=== PATIENT | male | born 1950 | race Caucasian/White ===

== ENCOUNTER 2017-05-17 07:21 | Emergency (ER) | payer BC ==
[2017-05-17 07:47] LABS: #Basophils 0.1 thou/uL (0.0-0.2); #Eosinphils 0.3 thou/uL (0.0-0.7); #Lymphocytes 2.1 thou/uL (1.20-3.40); #Monocytes 0.5 thou/uL (0.11-0.59); #Neutrophils 5.2 thou/uL (1.40-6.50); %Basophils 1.2 % (0.0-1.0); %Eosinophils 4.1 % (0.0-10.0); %Lymphocytes 25.3 % (21.0-51.0); %Monocytes 5.7 % (0.0-10.0); Hematocrit 51.8 % (42.0-52.0); Red Blood Cell (RBC) Count 5.72 mill/uL (4.70-6.10); White Blood Cell (WBC) Count 8.2 thou/uL (4.8-10.8)
[2017-05-17] MEDS ORDERED: Ketorolac Tromethamine 30 MG/ML VIAL ONE (08:00)
[2017-05-17] MEDS ORDERED: Diazepam 5 MG TAB ONE (08:00)
[2017-05-17 08:09] LABS: ALT (SGPT) 18 U/L (8-55); AST (SGOT) 17 U/L (5-34); Alkaline Phosphatase 92 U/L (40-150); Anion Gap 13 mmol/L (10-20); BUN (Urea Nitrogen) 11 mg/dL (8.4-25.7); Bilirubin, Total 1.2 mg/dL (0.2-1.2); CK (CPK) 49 U/L (30-200); Calc. Creatinine Clearance 0 mL/min (70-130); Calcium 8.5 mg/dL (7.8-10.44); Carbon Dioxide 22 mmol/L (23-31); Chloride 108 mmol/L (98-107); Estimated GFR-MDRD Greater than 90; Protein, Total 6.5 g/dL (5.8-8.1)
[2017-05-17 08:19] LABS: Troponin I Less than 0.010 ng/mL (< 0.028)
--- NOTE | 2017-05-17 08:39 | RAD ---
PORTABLE CHEST: Date: 05/17/17 COMPARISON: 12/22/15. HISTORY: Chest pain. FINDINGS: Heart size is enlarged. Once again, a questionable area of nodularity adjacent to the costochondral j unction of the left first rib is seen. I am not certain whether this is related to a pulmonary nodule or is just related to the costochondral junction. There is no infiltrative process noted. No other f indings. IMPRESSION: 1. Cardiomegaly. 2. Questionable left upper lobe pulmonary nodule versus prominent costochondral junction of left fir st rib. Oblique films may be helpful in assessment of this. POS: [facility]
[2017-05-17] MEDS ORDERED: Albuterol Sulfate 2.5 mg/3 ml Neb ONE (08:52)
[2017-05-17] MEDS ORDERED: methylPREDNISolone Sod Succ/PF 125 MG/2 ML VIAL ONE (08:56)
--- NOTE | 2017-06-08 15:30 | EKG ---
Test Reason : Blood Pressure : / mmHG Vent. Rate : 067 BPM Atrial Rate : 067 BPM P-R Int : 158 ms QRS Dur : 094 ms QT Int : 440 ms P-R-T Axes : 023 -07 030 degrees QTc Int : 464 ms Sinus rhythm with occasional Premature ventricular complexes Otherwise normal ECG Confirmed by LIUDMILA MORRISON D.O. ([id number]), news editor JACE GORDON ([id number]) on 06/08/2017 3:30:16 PM Referred By: Confirmed By:LIUDMILA MORRISON D.O.
== END 2017-05-17 10:40 | disposition home or self-care (01) ==
LOC: ERS 07:21
DX: S39.012A Strain of muscle, fascia and tendon of lower back, initial encounter (principal); J45.909 Unspecified asthma, uncomplicated; I11.0 Hypertensive heart disease with heart failure; I50.9 Heart failure, unspecified; F41.9 Anxiety disorder, unspecified; Z79.899 Other long term (current) drug therapy; X58.XXXA Exposure to other specified factors, initial encounter
CPT/HCPCS: 36415; 71010; 80053; 82553; 83880; 84484; 85025; 93005; 94640; 96374; 96375; J1885; J2930; J7611; J7620

== ENCOUNTER 2017-12-04 07:44 | Outpatient (CLI) | payer OTHER, MEDICARE ==
--- NOTE | 2017-12-04 10:47 | CT ---
CT ABDOMEN AND PELVIS WITH CONTRAST: HISTORY: A 67-year-old male with a history of periumbilical pain. COMPARISON: 12/22/2015 FINDINGS: The lungs are clear. Status post cholecystectomy. Postop changes. Evident for gastric bypass with a small hiatal hernia. The pancreas appears within normal limits. No evidence of pancreatic mass, a bnormal fat stranding, or evidence for acute pancreatitis. The spleen and adrenal glands are unremar kable. Small bilateral renal hypodensities (evidence for small cysts). Normal appearing appendix. Extensive colonic diverticulosis involving the sigmoid and left colon without evidence for diverticul itis. No abscess, adenopathy, or abnormal fluid collection. IMPRESSION: 1. Colonic diverticulosis without diverticulitis. 2. Small bilateral renal cysts. 3. Postoperative changes involving the stomach, status post cholecystectomy. 4. Unremarkable appearing pancreas (stable from prior study). POS: [facility]
[2017-12-04] MEDS ORDERED: Iopamidol 370 76% 100 ML VIAL ONE (12:55)
== END 2017-12-04 07:45 | disposition home or self-care (01) ==
LOC: BICCT 07:44 → CT 07:45
PROVIDERS: ATTEND Internal Medicine Gastroenterology
DX: R10.33 Periumbilical pain (principal); K57.30 Diverticulosis of large intestine without perforation or abscess without bleeding; N28.1 Cyst of kidney, acquired; Z98.890 Other specified postprocedural states; Z90.49 Acquired absence of other specified parts of digestive tract
CPT/HCPCS: 74177

== ENCOUNTER 2017-12-05 12:07 | Emergency (ER) | payer MEDICARE, OTHER ==
[2017-12-05 12:50] LABS: #Basophils 0.1 thou/uL (0.0-0.2); #Eosinphils 0.3 thou/uL (0.0-0.7); #Lymphocytes 2.5 thou/uL (1.20-3.40); #Monocytes 0.5 thou/uL (0.11-0.59); #Neutrophils 3.5 thou/uL (1.40-6.50); %Basophils 1.5 % (0.0-1.0); %Eosinophils 4.1 % (0.0-10.0); %Lymphocytes 36.1 % (21.0-51.0); %Monocytes 7.9 % (0.0-10.0); %Neutrophils 50.4 % (42.0-75.0); Hemoglobin 16.2 g/dL (14.0-18.0); Mean Corpuscular HGB CONC 33.4 g/dL (32.0-36.0); Mean Corpuscular Hemoglobin 29.5 pg (27.0-31.0); Mean Corpuscular Volume 88.2 fl (80.0-94.0); Mean Platelet Volume 8.7 fL (7.4-10.4); Platelet Count 199 thou/uL (130-400); RBC Distribution Width 12.6 % (11.5-14.5); Red Blood Cell (RBC) Count 5.49 mill/uL (4.70-6.10); White Blood Cell (WBC) Count 6.9 thou/uL (4.8-10.8)
--- NOTE | 2017-12-05 13:06 | RAD ---
CHEST ONE VIEW: HISTORY: Chest pain. COMPARISON: Chest radiograph from 05/17/2017. FINDINGS: Heart size is within the upper limits of normal. The nodular density projecting in the left lung ape x is similar. No acute osseous abnormality. Heart size is mildly enlarged. IMPRESSION: Similar examination of the chest from 2017. Nodular density projecting over the left upper lobe is s imilar. A follow-up two view chest may be beneficial. POS: [facility]
[2017-12-05 13:13] LABS: ALT (SGPT) 10 U/L (8-55); AST (SGOT) 15 U/L (5-34); Albumin 3.7 g/dL (3.4-4.8); Alkaline Phosphatase 90 U/L (40-150); Anion Gap 14 mmol/L (10-20); BUN (Urea Nitrogen) 11 mg/dL (8.4-25.7); Bilirubin, Total 0.9 mg/dL (0.2-1.2); CK (CPK) 56 U/L (30-200); Calc. Creatinine Clearance 0 mL/min (70-130); Calcium 8.8 mg/dL (7.8-10.44); Carbon Dioxide 23 mmol/L (23-31); Chloride 105 mmol/L (98-107); Estimated GFR-MDRD 88; Glucose 85 mg/dL (80-115); Lipase 10 U/L (8-78); Potassium 4.1 mmol/L (3.5-5.1); Protein, Total 6.7 g/dL (5.8-8.1); Sodium 138 mmol/L (136-145)
[2017-12-05 13:17] LABS: CKMB 1.4 ng/mL (0-6.6); Troponin I Less than 0.010 ng/mL (< 0.028)
== END 2017-12-05 15:17 | disposition home or self-care (01) ==
LOC: ERS 12:07
DX: R07.89 Other chest pain (principal); J45.909 Unspecified asthma, uncomplicated; I11.0 Hypertensive heart disease with heart failure; I50.9 Heart failure, unspecified; F41.9 Anxiety disorder, unspecified
CPT/HCPCS: 36415; 71045; 82550; 82553; 83690; 84484; 85025; 93005

== ENCOUNTER 2018-06-02 09:59 | Outpatient (CLI) | payer OTHER, MEDICARE ==
--- NOTE | 2018-06-02 11:16 | RAD ---
THREE VIEWS LEFT KNEE: Comparison: None. History: Left knee pain. FINDINGS: Three views of the left knee shows no evidence of acute fracture or dislocation. Moderate tricompartm ental osteophytes are seen consistent with osteoarthritis. This is greatest in the mediofemoral tibia l compartment. Calcifications are seen in the menisci likely secondary to CPPD. IMPRESSION: Moderate left knee osteoarthritis without acute osseous abnormality. POS: [facility]
== END 2018-06-02 10:00 | disposition home or self-care (01) ==
LOC: BICRAD 09:59
PROVIDERS: ATTEND Family Medicine
DX: M25.562 Pain in left knee (principal); M17.12 Unilateral primary osteoarthritis, left knee

== ENCOUNTER 2018-06-13 11:48 | Inpatient (IN) | payer OTHER, MEDICARE ==
[2018-06-13] MEDS ORDERED: Nitroglycerin 2% Ointment 1 INCH/1 GM Packet ONE (12:26)
[2018-06-13] MEDS ORDERED: Enoxaparin Sodium 30 MG/0.3 ML SYRINGE ONE (12:27)
[2018-06-13] MEDS ORDERED: Enoxaparin Sodium 100 MG/ML SYRINGE ONE (12:27)
[2018-06-13] MEDS ORDERED: Furosemide 20 MG/2 ML VIAL ONE (12:28)
[2018-06-13 12:30] LABS: #Basophils 0.1 thou/uL (0.0-0.2); #Eosinphils 0.3 thou/uL (0.0-0.7); #Lymphocytes 2.4 thou/uL (1.20-3.40); #Monocytes 0.5 thou/uL (0.11-0.59); #Neutrophils 4.3 thou/uL (1.40-6.50); %Eosinophils 3.5 % (0.0-10.0); %Lymphocytes 31.6 % (21.0-51.0); %Monocytes 6.7 % (0.0-10.0); %Neutrophils 57.3 % (42.0-75.0); Hemoglobin 17.4 g/dL (14.0-18.0); Mean Corpuscular HGB CONC 34.3 g/dL (32.0-36.0); Mean Corpuscular Volume 87.4 fL (78.0-98.0); Mean Platelet Volume 8.6 fL (7.4-10.4); Platelet Count 201 thou/uL (130-400); RBC Distribution Width 12.8 % (11.5-14.5); Red Blood Cell (RBC) Count 5.81 mill/uL (4.70-6.10); White Blood Cell (WBC) Count 7.5 thou/uL (4.8-10.8)
[2018-06-13 12:52] LABS: ALT (SGPT) 12 U/L (8-55); AST (SGOT) 14 U/L (5-34); Albumin 3.8 g/dL (3.4-4.8); Alkaline Phosphatase 110 U/L (40-150); Anion Gap 13 mmol/L (10-20); BUN (Urea Nitrogen) 10 mg/dL (8.4-25.7); Bilirubin, Total 1.1 mg/dL (0.2-1.2); Calc. Creatinine Clearance 0 mL/min (70-130); Calcium 8.9 mg/dL (7.8-10.44); Carbon Dioxide 26 mmol/L (23-31); Chloride 103 mmol/L (98-107); Estimated GFR-MDRD 87; Globulin 3.1 g/dL (2.4-3.5); Glucose 95 mg/dL (80-115); Lipase 7 U/L (8-78); Potassium 3.6 mmol/L (3.5-5.1); Protein, Total 6.9 g/dL (5.8-8.1); Sodium 138 mmol/L (136-145)
[2018-06-13 12:56] LABS: INR-International Normal Ratio 1.1; PTT 30.7 SEC (22.9-36.1); Prothrombin Time 13.8 SEC (12.0-14.7)
--- NOTE | 2018-06-13 12:56 | RAD ---
PORTABLE CHEST ONE VIEW: Date: 06-13-18 Time: 12:41 p.m. History: Chest pain FINDINGS: Comparison made with exam of 12-05-17. Heart size is normal. No focal areas of consolidation or pneumothoraces or pleural effusions are seen . IMPRESSION: No acute process. POS: [facility]
[2018-06-13 15:42] LABS: Troponin I Less than 0.010 ng/mL (< 0.028)
[2018-06-13 16:13] VITALS: BMI 37.8
[2018-06-13] MEDS ORDERED: Nitroglycerin 0.4 MG TAB (25 Tab Bottle) PO PRN (17:36)
[2018-06-13] MEDS ORDERED: Communication Order-Pharmacy FS SCH (18:00)
[2018-06-13] MEDS: Acetaminophen 500 MG TAB PO PRN (18:26)
--- NOTE | 2018-06-13 19:13 | PRG ---
DATE OF SERVICE: 06/13/2018 CARDIOLOGY FOLLOWUP SUBJECTIVE: Mr. Ly is feeling much better, free of any chest pressure now. He says, however, he gets up to walk around even around the room. He gets pressure in his chest. Cardiac enzymes were negative. ASSESSMENT: Unstable angina. PLAN: Cardiac catheterization on Saturday. He is on aspirin and enoxaparin until then. Discussed risks of stroke, heart attack, iodine allergy, loss of blood supply to leg or kidney, stent thrombosis, and stent restenoses. He understands and wishes to proceed. This is an addition to the note from the office. Job ID: [id number]
[2018-06-13 20:04] LABS: Troponin I Less than 0.010 ng/mL (< 0.028)
[2018-06-13] MEDS: Atorvastatin Calcium 40 MG TAB PO SCH (20:21)
[2018-06-13] MEDS: Carvedilol 6.25 MG TAB PO SCH (20:21)
[2018-06-13] MEDS: Enoxaparin Sodium 120 MG/0.8 ML SYRINGE SC SCH (20:21)
[2018-06-13] MEDS: HYDROcodone/Acetaminophen 7.5/325 mg Tablet PO PRN (20:22)
[2018-06-13] MEDS: Lisinopril 5 MG TAB PO SCH (20:22)
--- NOTE | 2018-06-14 00:56 | HP ---
HISTORY OF PRESENT ILLNESS: This is a 67-year-old white male with coronary artery disease and hypertension, who presents with chest pain. The patient had a cardiac cath done in 2012, which revealed 20% to 30% lesions. No stents were placed at that time. He has been followed by Dr. Long. He also had a stress test and an echo done in August of this year, which were found to be unremarkable. He was doing well until approximately 3 days ago he began developing chest tightness with exertion. He also noted his blood pressure to be elevated with diastolics in the 120 to 130 range. He did not complain of any nausea, vomiting, or sweats. He presented to Dr. Long's office and Dr. Long directed him to the emergency room. In the ER, he attempted to leave AMA, but needed a work excuse, so he had to stay in the hospital. He is still having occasional bouts of chest pain. He complains now mostly of a headache from the nitroglycerin. He also has a long history of chronic diarrhea dating after his bariatric surgery in 2003. He is followed by Dr. Edouard and he takes Imodium liquid every morning and Lomotil every morning. He consumes these in relatively large doses. PAST MEDICAL HISTORY: Hypertension, arthritis, asthma, depression, GERD, sleep apnea, and hyperlipidemia. PAST SURGICAL HISTORY: Includes knee surgery, right in 1977; gastric bypass in 2003, cholecystectomy in 2004, foot surgery, sleep apnea diagnosed in 1981, cardiac cath in 2014 with coronary artery disease, 20% to 30% lesions. FAMILY HISTORY: Father with lung disease, arthritis, asthma, lung cancer, and prostate cancer. Mother with heart disease, diabetes, and arthritis. Siblings with HIV infections. Children with alcoholism and drug addiction. Paternal grandfather with heart disease, hypertension, colon cancer, and skin cancer. Paternal grandmother with hypertension. Maternal grandfather with heart disease. Maternal grandmother with lung disease and diabetes. SOCIAL HISTORY: He is . He has five kids, all grown. 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 He does not smoke. He does not drink. MEDICATIONS: 1. Coreg 6.25 p.o. b.i.d. 2. Protonix 40 daily. 3. Lasix daily. 4. Imodium liquid half a bottle q.a.m. and Lomotil 4 tablets q.a.m., followed by Dr. Edouard. ALLERGIES: TO NORVAS. REVIEW OF SYSTEMS: As above. PHYSICAL EXAMINATION: VITAL SIGNS: Temperature 98.0, pulse 74, respirations 18, pulse ox 96%, and blood pressure 123/78. GENERAL: No acute distress at this time. HEENT: Clear. HEART: Regular rate and rhythm. LUNGS: Clear. ABDOMEN: Soft, nontender. EXTREMITIES: With trace edema. LABORATORY DATA: White count 7.5, hemoglobin and hematocrit 17 and 50. INR 1.1. Sodium 138, potassium 3.6, chloride 103, creatinine 0.88, and BUN 10. Troponin less than 0.010 x2. BNP 104. Chest x-ray negative. ASSESSMENT: 1. Chest pain/chest tightness, rule out myocardial infarction. 2. Coronary artery disease with a history of 20% to 30% lesions in 2015. 3. Chronic diarrhea since 1999. 4. Bariatric surgery. 5. Headache from nitroglycerin. 6. Hypertension. 7. Asthma. 8. Hyperlipidemia. PLAN: 1. Consult Dr. Long. 2. Echo. 3. Resume home medications. 4. [place] for headache and Tylenol p.r.n. 5. Possible cardiac cath per Cardiology. 6. Lovenox mg/kg q.12. Job ID: [id number]
[2018-06-14 06:38] LABS: Cardiac Risk 4.5 (Less than 4.5)
[2018-06-14] MEDS ORDERED: Furosemide 20 MG/2 ML VIAL SLOW IVP SCH (08:00)
[2018-06-14] MEDS: Carvedilol 6.25 MG TAB PO SCH (08:14)
[2018-06-14] MEDS: Potassium Chloride 20 MEQ TAB PO SCH (08:14)
[2018-06-14] MEDS: Enoxaparin Sodium 120 MG/0.8 ML SYRINGE SC SCH ×2 (08:15→20:50)
[2018-06-14] MEDS: Lisinopril 5 MG TAB PO SCH (08:15)
[2018-06-14] MEDS ORDERED: Carvedilol 6.25 MG TAB PO SCH ×4 (09:00→21:00)
[2018-06-14] MEDS: Loperamide HCl 2 MG CAP PO PRN (09:33)
[2018-06-14] MEDS: Diphenoxylate HCl/Atropine Tablet PO PRN (11:17)
--- NOTE | 2018-06-14 11:30 | PRG ---
DATE OF SERVICE: 06/14/2018 SUBJECTIVE: The patient is doing well. No complaints of any chest pain or shortness of breath. Awaiting cardiac cath on Saturday. He is undergoing an echo right at this time. OBJECTIVE: VITAL SIGNS: Temperature 97.8, pulse 65, and blood pressure 186/107. HEART: Regular rate and rhythm. LUNGS: Clear. ABDOMEN: Soft. EXTREMITIES: No edema. LABORATORY DATA: Troponin less than 0.010 x3. Cholesterol 134. Chloride 83. ASSESSMENT: 1. Unstable angina. 2. Coronary artery disease with history of 20% to 30% lesions in 2004. 3. Chronic diarrhea. 4. Status post bariatric surgery. 5. Headache. 6. Hypertension. 7. Hyperlipidemia. 8. Asthma. PLAN: 1. Cardiac catheterization on Saturday. 2. We will increase blood pressure medications. 3. Continue Lovenox. Job ID: [id number]
[2018-06-14] MEDS ORDERED: hydrALAZINE 25 MG TAB PO SCH ×3 (12:15→15:00)
[2018-06-14] MEDS ORDERED: Lisinopril 5 MG TAB PO SCH (13:33)
[2018-06-14] MEDS ORDERED: Lisinopril 10 MG TAB PO SCH (13:45)
[2018-06-14] MEDS ORDERED: Carvedilol 25 MG TAB PO SCH (13:45)
[2018-06-14] MEDS ORDERED: Aspirin 81 mg Enteric Coated Tablet PO SCH ×2 (13:45→14:00)
[2018-06-14] MEDS ORDERED: hydrALAZINE 20 MG/ML VIAL SLOW IVP PRN (13:52)
--- NOTE | 2018-06-14 13:52 | EKG ---
Test Reason : CHEST TIGHTNESS Blood Pressure : / mmHG Vent. Rate : 062 BPM Atrial Rate : 062 BPM P-R Int : 160 ms QRS Dur : 090 ms QT Int : 432 ms P-R-T Axes : 026 -12 -09 degrees QTc Int : 438 ms Sinus rhythm with frequent Premature ventricular complexes Nonspecific ST abnormality Abnormal ECG Confirmed by MARII HANSEN, TJ ([id number]), newspaper editor managing DEBBIE WU ([id number]) on 06/14/2018 1:52:03 PM Referred By: Confirmed By:TJ COLVIN MD
[2018-06-14] MEDS: Carvedilol 25 MG TAB PO SCH (20:49)
[2018-06-14] MEDS: hydrALAZINE 25 MG TAB PO SCH (20:49)
[2018-06-14] MEDS: Atorvastatin Calcium 40 MG TAB PO SCH (20:49)
[2018-06-14] MEDS: Lisinopril 10 MG TAB PO SCH (20:50)
[2018-06-15] MEDS: HYDROcodone/Acetaminophen 7.5/325 mg Tablet PO PRN (08:02)
[2018-06-15] MEDS: Potassium Chloride 20 MEQ TAB PO SCH (08:03)
[2018-06-15] MEDS: Lisinopril 10 MG TAB PO SCH ×2 (08:03→20:26)
[2018-06-15] MEDS: hydrALAZINE 25 MG TAB PO SCH ×3 (08:03→20:26)
[2018-06-15] MEDS: Carvedilol 25 MG TAB PO SCH ×2 (08:03→20:26)
[2018-06-15] MEDS: Aspirin 81 mg Enteric Coated Tablet PO SCH (08:03)
[2018-06-15] MEDS: Enoxaparin Sodium 120 MG/0.8 ML SYRINGE SC SCH ×2 (08:04→20:27)
--- NOTE | 2018-06-15 09:06 | CON ---
DATE OF CONSULTATION: 06/15/2018 SUBJECTIVE: The patient is feeling much better today. No complaints of chest pain or shortness of breath. OBJECTIVE: VITAL SIGNS: Blood pressure 132/78, temp 97.8, pulse 57, respirations 16, pulse ox 96%. HEART: Regular rate and rhythm. LUNGS: Clear. ABDOMEN: Soft. EXTREMITIES: No edema. LABORATORY DATA: None. ASSESSMENT: 1. Unstable angina. 2. Coronary artery disease with history of 23% to 30% lesion in 2004. 3. Chronic diarrhea. 4. Status post bariatric surgery. 5. Headache. 6. Hypertension, much improved with adjustment of medicines. 7. Hyperlipidemia. 8. Asthma. PLAN: 1. Cardiac catheterization in a.m. 2. Continue to follow blood pressure levels. 3. Continue Lovenox. Job ID: [id number]
[2018-06-15] MEDS: Loperamide HCl 2 MG CAP PO PRN (20:26)
[2018-06-15] MEDS: Atorvastatin Calcium 40 MG TAB PO SCH (20:26)
[2018-06-16] MEDS: Aspirin 81 mg Enteric Coated Tablet PO SCH (05:15)
[2018-06-16] MEDS: Potassium Chloride 20 MEQ TAB PO SCH (05:15)
[2018-06-16] MEDS: hydrALAZINE 25 MG TAB PO SCH ×2 (05:16→21:02)
[2018-06-16] MEDS: Carvedilol 25 MG TAB PO SCH ×2 (05:16→21:03)
[2018-06-16] MEDS: Loperamide HCl 2 MG CAP PO PRN ×2 (05:16→08:11)
[2018-06-16] MEDS: Lisinopril 10 MG TAB PO SCH ×2 (05:17→21:02)
[2018-06-16] MEDS: Diphenoxylate HCl/Atropine Tablet PO PRN (06:30)
[2018-06-16] MEDS ORDERED: Diazepam 5 MG TAB PO SCH (08:00)
[2018-06-16] MEDS ORDERED: Nitroglycerin 100MG/250ML BOT 250 ML ONE ×2 (08:21→09:41)
[2018-06-16] MEDS ORDERED: Heparin 10,000 UNITS/1 ML VIAL ONE (08:21)
[2018-06-16] MEDS ORDERED: Fentanyl 100 MCG/2 ML VIAL ONE (09:22)
[2018-06-16] MEDS ORDERED: Midazolam HCl 2 mg/2 ml Vial ONE (09:22)
[2018-06-16] MEDS ORDERED: Lidocaine 1% (PF) 30 ML VIAL ONE (09:23)
[2018-06-16] MEDS ORDERED: Nitroglycerin 0.4 MG TAB (25 Tab Bottle) SL PRN (10:26)
[2018-06-16] MEDS ORDERED: traMADol HCl 50 MG TAB PO PRN (10:26)
[2018-06-16] MEDS ORDERED: Acetaminophen/Codeine 30-300mg Tablet PO PRN ×2 (10:26)
[2018-06-16] MEDS ORDERED: Sodium Chloride 0.9% 200 ML IV PRN (10:30)
[2018-06-16] MEDS ORDERED: Mag-Al 1200 mg/1200 mg/30 ML UDCUP PO SCH (12:45)
[2018-06-16] MEDS ORDERED: Iopamidol 370 76% 100 ML VIAL ONE (12:49)
[2018-06-16] MEDS ORDERED: Iopamidol 370 76% 50 ML VIAL FS ONE (12:49)
--- NOTE | 2018-06-16 14:51 | PRG ---
DATE OF SERVICE: 06/16/2018 SUBJECTIVE: Mr. Ly has undergone catheterization. It appears he will need bypass surgery. He has no other medical complaints today. OBJECTIVE: VITAL SIGNS: Blood pressure 132/82. LUNGS: Clear. HEART: Reveals a regular rate and rhythm. No murmurs, gallops, or rubs. ABDOMEN: Soft and nontender. Bowel sounds present and active. No hepatosplenomegaly is noted. IMPRESSION: Atherosclerotic coronary artery disease. PLAN: Further recommendations per Cardiology as well as Cardiovascular Surgery. Job ID: [id number]
[2018-06-16] MEDS ORDERED: Communication Order-Pharmacy FS SCH (17:30)
--- NOTE | 2018-06-16 18:15 | PRG ---
DATE OF SERVICE: 06/16/2018 CARDIOLOGY FOLLOWUP SUBJECTIVE: I had a long discussion with Mr. Ly about his status. He does have single vessel coronary artery disease with a chest pressure with minimal exertion. The patient does have approximately 70% lesion in the proximal LAD, it is "hazy." Also, there is a lesion in the diagonal branch. Dr. Lei saw the patient, thought that vessel is not likely to be bypassable. After further discussion, I think stenting would be an appropriate treatment. I have explained to him it could be side-branch occlusion of the diagonal branch or the septal perforating artery; however, in view of his chest pressure with low-level activity and occasionally at rest, I think intervention is indicated. Told to me he still may have chest pressure due to diagonal branch, even after the successful stent implantation, but Dr. Lei did not think a surgery was indicated. I discussed other risks. He understands risk of stroke, heart attack, iodine allergy, loss of blood supply to leg or kidney. We will proceed tomorrow as planned. Job ID: [id number]
--- NOTE | 2018-06-16 18:31 | CON ---
DATE OF CONSULTATION: HISTORY OF PRESENT ILLNESS: This is a 67-year-old gentleman with a history of previous cardiac catheterization showing mild coronary artery disease about 5 years ago. Recent stress test earlier this year was unremarkable. He began experiencing some pressure in his lower chest, which was rather constant, unrelated to activity. He was seen by Dr. Long in his office, where the symptoms resolved after taking 4 nitroglycerins and applying some nitro paste. Cardiac enzymes in the hospital have been negative. An EKG is nonspecific with some unifocal PVCs. PAST MEDICAL HISTORY: Includes hypertension that is mild. He has a history of arthritis related to weight primarily, history of depression, morbid obesity, and dyslipidemia. PAST SURGICAL HISTORY: Includes knee surgery in 1977; gastric bypass in 2003; resulting in a weight loss from over 400 pounds to about 230 and now stabilized at about 270, however, he has some daily diarrhea related to this. He had cholecystectomy in 2004, foot surgery. SOCIAL HISTORY: He runs a [employer] about 12 hours a day. MEDICATIONS PRIOR TO ADMISSION: 1. Coreg 6.25 b.i.d. 2. Protonix 40 a day. 3. Lasix. REVIEW OF SYSTEMS: The patient has the above-noted GI symptoms. He denies any significant nocturia or hesitancy. He does complain of arthritis in his knees and swelling in his legs during the day. PHYSICAL EXAMINATION: GENERAL: Alert, cooperative gentleman. Stated weight of 270 pounds, appears to be over 6 feet tall. NECK: No carotid bruits. LUNGS: Clear to auscultation. CARDIAC: Regular rate and rhythm. No murmurs. ABDOMEN: Obese, nontender, and unable to feel abdominal aneurysm. EXTREMITIES: He has no edema presently with palpable pedal pulses in both feet. IMPRESSION: At this time, I would tend toward conservative therapy either medical or perhaps stenting of his LAD. He has 60% to 70% LAD lesion with a smallish diagonal above and below, this both with significant disease, but marginal for grafting. His right coronary artery probably has about a 50% distal stenosis diffusely, probably related to calcification. Job ID: [id number]
[2018-06-16] MEDS ORDERED: TICAGRELOR 90 MG TABLET PO SCH (18:45)
[2018-06-16] MEDS: Atorvastatin Calcium 40 MG TAB PO SCH (21:02)
[2018-06-17] MEDS: Diphenoxylate HCl/Atropine Tablet PO PRN (04:47)
[2018-06-17] MEDS ORDERED: Diazepam 5 MG TAB PO SCH (06:00)
[2018-06-17] MEDS: Sodium Chloride 0.9% 1,000 ML IV SCH ×2 (06:06→16:20)
[2018-06-17] MEDS: Potassium Chloride 20 MEQ TAB PO SCH (06:07)
[2018-06-17] MEDS: Aspirin 81 mg Enteric Coated Tablet PO SCH (06:07)
[2018-06-17] MEDS: TICAGRELOR 90 MG TABLET PO SCH ×3 (06:07→20:07)
[2018-06-17] MEDS: Carvedilol 25 MG TAB PO SCH (06:07)
[2018-06-17] MEDS: hydrALAZINE 25 MG TAB PO SCH ×3 (06:08→20:07)
[2018-06-17] MEDS: Lisinopril 10 MG TAB PO SCH ×2 (06:08→20:07)
[2018-06-17] MEDS: Loperamide HCl 2 MG CAP PO PRN (06:08)
[2018-06-17] MEDS ORDERED: Iopamidol 370 76% 100 ML VIAL ONE ×2 (09:00→10:00)
[2018-06-17] MEDS ORDERED: Iopamidol 370 76% 50 ML VIAL FS ONE (09:00)
[2018-06-17] MEDS ORDERED: Heparin 10,000 UNITS/1 ML VIAL ONE ×3 (09:13→11:34)
[2018-06-17] MEDS ORDERED: Fentanyl 100 MCG/2 ML VIAL ONE ×3 (09:13→13:20)
[2018-06-17] MEDS ORDERED: Midazolam HCl 2 mg/2 ml Vial ONE (09:13)
[2018-06-17] MEDS ORDERED: Nitroglycerin 100MG/250ML BOT 250 ML ONE (09:26)
[2018-06-17] MEDS ORDERED: Nitroglycerin 2% Ointment 1 INCH/1 GM Packet ONE (11:04)
[2018-06-17] MEDS ORDERED: Fentanyl 100 MCG/2 ML VIAL SLOW IVP PRN (11:47)
[2018-06-17] MEDS ORDERED: Nitroglycerin 2% Ointment 1 INCH/1 GM Packet TOP SCH (12:00)
--- NOTE | 2018-06-17 14:10 | PRG ---
DATE OF SERVICE: 06/17/2018 SUBJECTIVE: Mr. Ly is undergoing cardiac cath today. He will have a stent placed. He reports no chest pain. No shortness of breath. OBJECTIVE: LUNGS: Clear. HEART: Reveals no murmur. IMPRESSION: Atherosclerotic coronary artery disease. PLAN: Cardiac stent today per Cardiology. Job ID: [id number]
[2018-06-17] MEDS: Acetaminophen 500 MG TAB PO PRN (15:58)
--- NOTE | 2018-06-17 17:55 | EKG ---
Test Reason : POST STENT Blood Pressure : / mmHG Vent. Rate : 049 BPM Atrial Rate : 049 BPM P-R Int : 182 ms QRS Dur : 102 ms QT Int : 502 ms P-R-T Axes : 021 001 002 degrees QTc Int : 453 ms Marked sinus bradycardia Abnormal ECG When compared with ECG of 13-JUN-2018 11:55, Premature ventricular complexes are no longer Present Confirmed by ROGERIO VOGT ([id number]) on 06/17/2018 5:55:17 PM Referred By: FAUZIA Confirmed By:ROGERIO VOGT
[2018-06-17] MEDS: Atorvastatin Calcium 40 MG TAB PO SCH (20:07)
[2018-06-18 05:44] LABS: #Basophils 0.1 thou/uL (0.0-0.2); #Eosinphils 0.3 thou/uL (0.0-0.7); #Lymphocytes 1.2 thou/uL (1.20-3.40); #Monocytes 0.5 thou/uL (0.11-0.59); #Neutrophils 5.3 thou/uL (1.40-6.50); %Basophils 0.7 % (0.0-1.0); %Eosinophils 4.3 % (0.0-10.0); %Lymphocytes 16.3 % (21.0-51.0); %Monocytes 6.5 % (0.0-10.0); %Neutrophils 72.2 % (42.0-75.0); Hemoglobin 15.5 g/dL (14.0-18.0); Mean Corpuscular HGB CONC 32.7 g/dL (32.0-36.0); Mean Corpuscular Hemoglobin 29.2 pg (27.0-31.0); Mean Corpuscular Volume 89.3 fL (78.0-98.0); Mean Platelet Volume 9.2 fL (7.4-10.4); Platelet Count 173 thou/uL (130-400); Red Blood Cell (RBC) Count 5.32 mill/uL (4.70-6.10); White Blood Cell (WBC) Count 7.3 thou/uL (4.8-10.8)
[2018-06-18 05:57] LABS: ALT (SGPT) 39 U/L (8-55); AST (SGOT) 47 U/L (5-34); Albumin 3.4 g/dL (3.4-4.8); Alkaline Phosphatase 92 U/L (40-150); Anion Gap 8 mmol/L (10-20); BUN (Urea Nitrogen) 12 mg/dL (8.4-25.7); Bilirubin, Total 1.5 mg/dL (0.2-1.2); Calc. Creatinine Clearance 151 mL/min (70-130); Calcium 8.7 mg/dL (7.8-10.44); Carbon Dioxide 27 mmol/L (23-31); Chloride 108 mmol/L (98-107); Estimated GFR-MDRD Greater than 90; Globulin 2.8 g/dL (2.4-3.5); Glucose 92 mg/dL (80-115); Potassium 3.8 mmol/L (3.5-5.1); Protein, Total 6.2 g/dL (5.8-8.1); Sodium 139 mmol/L (136-145)
[2018-06-18] MEDS: Potassium Chloride 20 MEQ TAB PO SCH (08:02)
[2018-06-18] MEDS: Lisinopril 10 MG TAB PO SCH (08:03)
[2018-06-18] MEDS: Aspirin 81 mg Enteric Coated Tablet PO SCH (08:03)
[2018-06-18] MEDS: hydrALAZINE 25 MG TAB PO SCH (08:03)
[2018-06-18] MEDS: TICAGRELOR 90 MG TABLET PO SCH (08:03)
[2018-06-18 11:40] VITALS: BP 168/98; TEMP 97.9
[2018-06-18] MEDS ORDERED: Carvedilol 6.25 MG TAB PO SCH ×2 (12:00→17:00)
--- NOTE | 2018-06-18 12:27 | PRG ---
DATE OF SERVICE: 06/18/2018 SUBJECTIVE: Mr. Ly is doing well. OBJECTIVE: VITAL SIGNS: His blood pressure is very high this morning, but when we rechecked, it is 160/90, which is close to what he normally runs. GENERAL: He has no chest pain or pressure. LUNGS: Clear. CARDIAC: Normal S1. Normal S2. ABDOMEN: Soft, nontender. EXTREMITIES: Reveal mild edema. ASSESSMENT: 1. Coronary artery disease. 2. Status post stent implantation in proximal left anterior descending artery. 3. He has a diagonal branch not amenable to stenting, "it was jailed," could be the cause of angina, discussed with the patient. 4. Hypertension. PLAN: 1. He will go home on carvedilol 12.5 mg twice a day. He was bradycardic on 25 mg twice a day. 2. Aspirin 81 mg a day. 3. Brilinta 90 mg twice a day. 4. Lisinopril 10 mg twice a day. 5. Furosemide 20 mg a day. 6. Atorvastatin. 7. He will come to see us in the office on next , the , and bring home medicines, and he was also given nitroglycerin, he could have angina from the diagonal branch. Job ID: [id number]
--- NOTE | 2018-06-18 13:19 | PRG ---
DATE OF SERVICE: 06/18/2018 SUBJECTIVE: Mr. Ly underwent stenting yesterday without difficulties or problems. Dr. Long reports he is feeling well. OBJECTIVE: VITAL SIGNS: Temperature 97.6, BP 150/98. LUNGS: Clear. HEART: Reveals no murmur. LABORATORY DATA: White blood count 7.3, hemoglobin 15.5, hematocrit 47.5. Electrolytes within normal limits. IMPRESSION: Atherosclerotic coronary artery disease, status post stenting. PLAN: He will be discharged home today. Further followup per Dr. Long. Job ID: [id number]
--- NOTE | 2018-06-18 17:57 | EKG ---
Test Reason : Blood Pressure : / mmHG Vent. Rate : 055 BPM Atrial Rate : 055 BPM P-R Int : 182 ms QRS Dur : 110 ms QT Int : 474 ms P-R-T Axes : 024 -10 021 degrees QTc Int : 453 ms Sinus bradycardia with Premature atrial complexes with Abberant conduction Otherwise normal ECG When compared with ECG of 17-JUN-2018 11:16, Abberant conduction is now Present Confirmed by ROGERIO VOGT ([id number]) on 06/18/2018 5:57:15 PM Referred By: FAUZIA Confirmed By:ROGERIO VOGT
[2018-06-19] MEDS ORDERED: Lisinopril 20 MG TAB PO SCH (09:00)
== END 2018-06-18 13:12 | disposition home or self-care (01) | DRG 247 ==
LOC: ERS 11:48 → 2SW 13:38 → OBSVTOIN 06-15 12:13 → 2NO 06-15 13:52
PROVIDERS: ADMIT Family Medicine; ATTEND Family Medicine
PROC: 4A023N7 Measurement of Cardiac Sampling and Pressure, Left Heart, Percutaneous Approach (ICD-10-PCS; 2018-06-16)
PROC: B2111ZZ Fluoroscopy of Multiple Coronary Arteries using Low Osmolar Contrast (ICD-10-PCS; 2018-06-16)
PROC: 027034Z Dilation of Coronary Artery, One Artery with Drug-eluting Intraluminal Device, Percutaneous Approach (ICD-10-PCS; principal; 2018-06-17)
DX: I25.110 Atherosclerotic heart disease of native coronary artery with unstable angina pectoris (principal); I10 Essential (primary) hypertension; K52.9 Noninfective gastroenteritis and colitis, unspecified; M19.90 Unspecified osteoarthritis, unspecified site; G47.33 Obstructive sleep apnea (adult) (pediatric); J45.909 Unspecified asthma, uncomplicated; E78.5 Hyperlipidemia, unspecified; F32.9 Major depressive disorder, single episode, unspecified; E66.9 Obesity, unspecified; Z98.84 Bariatric surgery status; Z88.8 Allergy status to other drugs, medicaments and biological substances; Z68.37 Body mass index [BMI] 37.0-37.9, adult
CPT/HCPCS: 36415; 71045; 76942; 80053; 80061; 83690; 83880; 84484; 85025; 85347; 85610; 85730; 92928; 93005; 93010; 93306; 93454; 93458; 93798; 94760; 96372; 96374; 99152; 99153; C1769; C1874; C1887; C9600; J1644; J1650; J1940; J2001; J2250; J3010

== ENCOUNTER 2018-07-26 10:04 | Emergency (ER) | payer OTHER, MEDICARE ==
[2018-07-26 10:30] LABS: Bilirubin Negative (Negative); Blood, Urine Negative (Negative); Clarity CLEAR (Clear); Glucose, Urine (Dipstick) Negative (Negative); Leukocyte Negative (Negative); Nitrite Negative (Negative); Protein, Urine (Dipstick) Negative (Neg-Trace); Specific Gravity, Urine 1.012 (1.002-1.036)
[2018-07-26 11:55] LABS: #Basophils 0.1 thou/uL (0.0-0.2); #Eosinphils 0.2 thou/uL (0.0-0.7); #Lymphocytes 1.5 thou/uL (1.20-3.40); #Monocytes 0.4 thou/uL (0.11-0.59); #Neutrophils 4.1 thou/uL (1.40-6.50); %Basophils 0.9 % (0.0-1.0); %Eosinophils 3.4 % (0.0-10.0); %Lymphocytes 24.3 % (21.0-51.0); %Monocytes 6.6 % (0.0-10.0); %Neutrophils 64.8 % (42.0-75.0); Hemoglobin 16.4 g/dL (14.0-18.0); Mean Corpuscular HGB CONC 33.4 g/dL (32.0-36.0); Mean Corpuscular Volume 89.8 fL (78.0-98.0); Mean Platelet Volume 8.1 fL (7.4-10.4); Platelet Count 197 thou/uL (130-400); Red Blood Cell (RBC) Count 5.48 mill/uL (4.70-6.10); White Blood Cell (WBC) Count 6.3 thou/uL (4.8-10.8)
[2018-07-26 12:15] LABS: ALT (SGPT) 14 U/L (8-55); AST (SGOT) 12 U/L (5-34); Albumin 3.7 g/dL (3.4-4.8); Alkaline Phosphatase 108 U/L (40-150); Anion Gap 14 mmol/L (10-20); BUN (Urea Nitrogen) 14 mg/dL (8.4-25.7); CK (CPK) 37 U/L (30-200); Calc. Creatinine Clearance 0 mL/min (70-130); Calcium 8.8 mg/dL (7.8-10.44); Carbon Dioxide 23 mmol/L (23-31); Chloride 103 mmol/L (98-107); Estimated GFR-MDRD Greater than 90; Globulin 2.7 g/dL (2.4-3.5); Glucose 94 mg/dL (80-115); Potassium 3.7 mmol/L (3.5-5.1); Protein, Total 6.4 g/dL (5.8-8.1); Sodium 136 mmol/L (136-145)
[2018-07-26] MEDS ORDERED: Ketorolac Tromethamine 30 MG/ML VIAL ONE (12:25)
--- NOTE | 2018-07-26 14:21 | CT ---
CT ABDOMEN NONCONTRAST CT PELVIS NONCONTRAST: (urolithiasis protocol) DATE: 07/26/2018. TIME: 10:49 a.m. HISTORY: A 67-year-old male with right flank pain. COMPARISON: CT with contrast of 12/04/2017. TECHNIQUE: IV injection of iodinated contrast media: none. Oral contrast media: none. FINDINGS: Other than for urolithiasis, the lack of IV and oral contrast limits the evaluation. Small volume stomach with suture line around it and in adjacent mildly dilated laterally located prox imal small bowel loop in the left upper quadrant. The rest of the small bowel loops are nondilated. A large number of diverticula throughout the descending colon and sigmoid colon. Mild pericolonic f at stranding on the mesenteric, superior side of the sigmoid colon. Uncertain whether or not this re presents diverticulitis. This appears slightly more prominent than on the previous CT and is appreci ated best on the coronal reconstructions. No renal, ureteral, or bladder calculus. No hydroureteron ephrosis. Bladder wall thickness is normal. Normal appendix. Liver margins are questionably nodula r. No other definite pathology identified involving the liver, abdominal aorta, bilateral kidneys, a drenals, pancreas, or spleen. No ascites or pneumoperitoneum. IMPRESSION: 1. No urolithiasis or obstructive uropathy. 2. Extensive descending and sigmoid colonic diverticulosis. 3. Questionable mild sigmoid colonic diverticulitis. Doubtful. Clinical correlation recommended. 4. Status post bariatric gastric bypass surgery and status post cholecystectomy. RASHARD Pacheco POS: [facility]
== END 2018-07-26 12:45 | disposition home or self-care (01) ==
LOC: ERS 10:04
DX: K57.32 Diverticulitis of large intestine without perforation or abscess without bleeding (principal); J45.909 Unspecified asthma, uncomplicated; I11.0 Hypertensive heart disease with heart failure; I50.9 Heart failure, unspecified; F41.9 Anxiety disorder, unspecified
CPT/HCPCS: 36415; 74176; 80053; 81003; 82550; 84484; 85025; 96372; J1885

== ENCOUNTER 2018-11-13 06:35 | Observation (INO) | payer OTHER, MEDICARE ==
[2018-11-12 17:10] VITALS: BMI 39.0
[2018-11-13] MEDS ORDERED: Nitroglycerin 0.4 MG TAB (25 Tab Bottle) ONE (07:22)
[2018-11-13 07:32] LABS: #Basophils 0.1 thou/uL (0.0-0.2); #Eosinphils 0.2 thou/uL (0.0-0.7); #Lymphocytes 1.5 thou/uL (1.20-3.40); #Monocytes 0.5 thou/uL (0.11-0.59); #Neutrophils 3.5 thou/uL (1.40-6.50); %Basophils 1.1 % (0.0-1.0); %Eosinophils 3.1 % (0.0-10.0); %Lymphocytes 26.3 % (21.0-51.0); %Monocytes 7.9 % (0.0-10.0); %Neutrophils 61.7 % (42.0-75.0); Hemoglobin 16.1 g/dL (14.0-18.0); Mean Corpuscular HGB CONC 34.2 g/dL (32.0-36.0); Mean Corpuscular Hemoglobin 30.9 pg (27.0-31.0); Mean Corpuscular Volume 90.3 fL (78.0-98.0); Mean Platelet Volume 8.8 fL (7.4-10.4); Platelet Count 173 thou/uL (130-400); RBC Distribution Width 12.2 % (11.5-14.5); Red Blood Cell (RBC) Count 5.21 mill/uL (4.70-6.10); White Blood Cell (WBC) Count 5.6 thou/uL (4.8-10.8)
[2018-11-13] MEDS ORDERED: Heparin 10,000 UNITS/1 ML VIAL ONE (07:35)
[2018-11-13] MEDS ORDERED: Nitroglycerin 100MG/250ML BOT 0 ML ONE (07:36)
[2018-11-13 07:39] LABS: INR-International Normal Ratio 1.1; PTT 28.7 SEC (22.9-36.1); Prothrombin Time 13.8 SEC (12.0-14.7)
[2018-11-13 07:51] LABS: Anion Gap 12 mmol/L (10-20); BUN (Urea Nitrogen) 16 mg/dL (8.4-25.7); Calc. Creatinine Clearance 141 mL/min (70-130); Calcium 8.8 mg/dL (7.8-10.44); Carbon Dioxide 23 mmol/L (23-31); Chloride 108 mmol/L (98-107); Estimated GFR-MDRD 81; Glucose 86 mg/dL (80-115); Potassium 4.2 mmol/L (3.5-5.1); Sodium 139 mmol/L (136-145)
[2018-11-13] MEDS ORDERED: Midazolam HCl 2 mg/2 ml Vial ONE (08:11)
[2018-11-13] MEDS ORDERED: Fentanyl 100 MCG/2 ML VIAL ONE ×3 (08:11→09:39)
[2018-11-13] MEDS ORDERED: Sodium Chloride 0.9% 1,000 ML IV SCH (09:30)
[2018-11-13] MEDS ORDERED: Iopamidol 370 76% 100 ML VIAL ONE (09:52)
[2018-11-13] MEDS ORDERED: Acetaminophen/Codeine 30-300mg Tablet ONE (12:36)
[2018-11-13] MEDS ORDERED: Nitroglycerin 0.4 MG TAB (25 Tab Bottle) SL PRN ×2 (15:11→19:19)
[2018-11-13] MEDS ORDERED: Fentanyl 100 MCG/2 ML VIAL SLOW IVP PRN (15:12)
[2018-11-13] MEDS ORDERED: Aspirin 81 mg Enteric Coated Tablet PO SCH (18:45)
--- NOTE | 2018-11-13 19:08 | EKG ---
Test Reason : C/O CHEST PAIN Blood Pressure : / mmHG Vent. Rate : 055 BPM Atrial Rate : 055 BPM P-R Int : 180 ms QRS Dur : 098 ms QT Int : 466 ms P-R-T Axes : 026 004 031 degrees QTc Int : 445 ms Sinus bradycardia with occasional Premature ventricular complexes Otherwise normal ECG When compared with ECG of 26-JUL-2018 11:12, No significant change was found Confirmed by DR. Zoë RICHMOND ([id number]) on 11/13/2018 7:08:08 PM Referred By: FAUZIA Confirmed By:DR. Zoë RICHMOND
[2018-11-13] MEDS ORDERED: Acetaminophen/Codeine 30-300mg Tablet PO PRN (19:19)
--- NOTE | 2018-11-13 19:19 | PRG ---
DATE OF SERVICE: 11/13/2018 SUBJECTIVE: Mr. Ly is resting comfortably now. The patient came in for cardiac catheterization this morning. He is having severe substernal pain and very intense. He had to go to the cardiac catheterization lab urgently. At the nursery laborer, we found that the stent was widely patent. He has stenosis in the ostium of the diagonal branch, not amenable to percutaneous therapy. The disease extends back to the LAD, would not recommend intervention in this area. The risk would not be justified by the potential benefit. The patient has been started on Protonix, nitrates, Ranexa. Hopefully, he could be released home tomorrow. Job ID: [id number]
[2018-11-13 19:56] LABS: Troponin I Less than 0.010 ng/mL (< 0.028)
[2018-11-13] MEDS: TICAGRELOR 90 MG TABLET PO SCH (20:59)
[2018-11-13] MEDS ORDERED: Rosuvastatin 20 MG TAB PO SCH (21:00)
[2018-11-14] MEDS: Acetaminophen/Codeine 30-300mg Tablet PO PRN ×2 (03:08→11:49)
[2018-11-14 06:23] LABS: Troponin I Less than 0.010 ng/mL (< 0.028)
[2018-11-14 08:15] VITALS: TEMP 98
[2018-11-14] MEDS: TICAGRELOR 90 MG TABLET PO SCH (08:50)
[2018-11-14] MEDS ORDERED: Aspirin 81 mg Enteric Coated Tablet PO SCH (09:00)
[2018-11-14] MEDS ORDERED: Lisinopril 10 MG TAB PO SCH ×2 (09:00→10:00)
[2018-11-14] MEDS ORDERED: Lisinopril 20 MG TAB PO SCH (09:00)
[2018-11-14] MEDS ORDERED: Carvedilol 6.25 MG TAB PO SCH ×2 (09:45→17:00)
[2018-11-14] MEDS ORDERED: Furosemide 20 MG/2 ML VIAL SLOW IVP SCH (10:00)
[2018-11-14] MEDS ORDERED: Potassium Chloride 20 MEQ TAB PO SCH (10:00)
[2018-11-14 12:44] VITALS: BP 166/98
--- NOTE | 2018-11-14 18:25 | DIS ---
DATE OF ADMISSION: 11/13/2018 DATE OF DISCHARGE: 11/14/2018 FINAL DIAGNOSES: 1. Coronary artery disease, stable. 2. Chest pain, probably noncardiac. 3. Hypertension. 4. Hypercholesterolemia. 5. Obesity. HOSPITAL COURSE: Please see note in the chart from yesterday from our office. The patient was brought for outpatient cardiac catheterization, but had severe intractable chest pain. It got better with nitroglycerin, then went away, then came back. We took him on urgent basis to catheterization lab, revealed the following. 1. Left main, normal. 2. LAD stent widely patent with good flow. 3. There is a diagonal branch with 90% ostial lesion as before. 4. Circumflex, normal. 5. Right coronary artery, no obstructive stenosis. 6. Normal left ventricular ejection fraction. Initially, we thought that perhaps the diagonal branch was the source of the discomfort, but the patient had absolutely no rise in cardiac enzymes despite prolonged episodes of chest pain. Troponins were all less than 0.010. I think this is probably more likely to be esophageal pain. It is still possible that it is anginal chest pain from the diagonal branch, but I think it is more likely esophageal. DISCHARGE MEDICATIONS: The patient was released home on the following medications: 1. Coreg, reduced dose to 6.25 mg twice a day as his heart rates have been frequently below 50 on the previous dose. 2. Aspirin 81 mg a day. 3. Brilinta 90 mg twice a day. 4. Crestor 20 mg a day. 5. Lisinopril 10 mg twice a day. 6. Potassium 10 mEq a day. 7. Lasix 20 mg a day. The patient will be asked to see us in the office in 2 to 3 months. He is also on Protonix 40 mg a day. Job ID: [id number]
[2018-11-15] MEDS ORDERED: Lisinopril 20 MG TAB PO SCH (09:00)
== END 2018-11-14 14:10 | disposition home or self-care (01) ==
LOC: CCL 06:35 → 2SW 14:19
PROVIDERS: ADMIT Internal Medicine Cardiovascular Disease; ATTEND Internal Medicine Cardiovascular Disease
PROC: 4A023N7 Measurement of Cardiac Sampling and Pressure, Left Heart, Percutaneous Approach (ICD-10-PCS; principal; 2018-11-13)
PROC: B2111ZZ Fluoroscopy of Multiple Coronary Arteries using Low Osmolar Contrast (ICD-10-PCS; 2018-11-13)
DX: R07.2 Precordial pain (principal); I25.10 Atherosclerotic heart disease of native coronary artery without angina pectoris; E78.00 Pure hypercholesterolemia, unspecified; I10 Essential (primary) hypertension; G47.30 Sleep apnea, unspecified; E66.9 Obesity, unspecified; Z68.39 Body mass index [BMI] 39.0-39.9, adult; Z79.02 Long term (current) use of antithrombotics/antiplatelets; Z79.899 Other long term (current) drug therapy; Z88.8 Allergy status to other drugs, medicaments and biological substances; Z95.5 Presence of coronary angioplasty implant and graft; Z98.84 Bariatric surgery status
CPT/HCPCS: 36415; 76942; 80048; 84484; 85025; 85610; 85730; 93005; 93010; 93458; 96374; 99152; 99153; C1769; G0378; J1644; J1940; J2250; J3010; Q9967

== ENCOUNTER 2018-12-27 09:24 | Inpatient (IN) | payer OTHER, MEDICARE ==
--- NOTE | 2018-12-27 09:51 | CT ---
CT Brain WO Con HISTORY: Confusion altered mental status asking repetitive questions. Stroke symptoms. COMPARISON: None. FINDINGS: The ventricular and cisternal system is within normal limits for age. There are no signs of intracerebral hemorrhage or extra-axial fluid collections. The mastoid air cells are clear. Mucosal changes seen in both maxillary sinuses. IMPRESSION: 1. No acute intracranial abnormalities. 2. Findings telephoned to Dr. Morales at 0948 hours.
[2018-12-27 09:52] LABS: #Basophils 0.1 thou/uL (0.0-0.2); #Eosinphils 0.2 thou/uL (0.0-0.7); #Lymphocytes 1.5 thou/uL (1.20-3.40); #Monocytes 0.4 thou/uL (0.11-0.59); #Neutrophils 4.3 thou/uL (1.40-6.50); %Basophils 1.1 % (0.0-1.0); %Eosinophils 3.6 % (0.0-10.0); %Lymphocytes 22.3 % (21.0-51.0); %Monocytes 6.8 % (0.0-10.0); %Neutrophils 66.2 % (42.0-75.0); Hemoglobin 16.8 g/dL (14.0-18.0); Mean Corpuscular HGB CONC 33.4 g/dL (32.0-36.0); Mean Corpuscular Hemoglobin 30.2 pg (27.0-31.0); Mean Corpuscular Volume 90.5 fL (78.0-98.0); Mean Platelet Volume 8.7 fL (7.4-10.4); Platelet Count 172 thou/uL (130-400); RBC Distribution Width 12.4 % (11.5-14.5); Red Blood Cell (RBC) Count 5.55 mill/uL (4.70-6.10); White Blood Cell (WBC) Count 6.5 thou/uL (4.8-10.8)
[2018-12-27 10:08] LABS: ALT (SGPT) 12 U/L (8-55); AST (SGOT) 14 U/L (5-34); Albumin 3.7 g/dL (3.4-4.8); Alkaline Phosphatase 97 U/L (40-150); Anion Gap 13 mmol/L (10-20); BUN (Urea Nitrogen) 13 mg/dL (8.4-25.7); Bilirubin, Total 1.3 mg/dL (0.2-1.2); CK (CPK) 85 U/L (30-200); Calc. Creatinine Clearance 0 mL/min (70-130); Calcium 8.6 mg/dL (7.8-10.44); Carbon Dioxide 25 mmol/L (23-31); Chloride 105 mmol/L (98-107); Estimated GFR-MDRD 80; Globulin 2.8 g/dL (2.4-3.5); Glucose 117 mg/dL (80-115); PTT 28.8 SEC (22.9-36.1); Potassium 3.9 mmol/L (3.5-5.1); Protein, Total 6.5 g/dL (5.8-8.1); Prothrombin Time 12.8 SEC (12.0-14.7); Sodium 139 mmol/L (136-145)
--- NOTE | 2018-12-27 10:16 | CT ---
Exam: CT ANGIOGRAM OF HEAD CT ANGIOGRAM OF NECK: HISTORY: Sudden onset of confusion and repetitive question asking. COMPARISON: None. TECHNIQUE: CT angiogram of the head and neck are performed in the axial plane. Three-dimensional refo rmatted images are submitted for interpretation. FINDINGS: Postcontrast head CT: No pathologic enhancement of the brain parenchyma. Brain volume, age-appropria te. No hydrocephalus. Postcontrast soft tissue neck CT: Unremarkable orbits. Aerodigestive tract is patent. Midline fatty r aphae of the tongue is preserved. Epiglottis has a normal caliber. No prevertebral soft tissue swelling Symmetric attenuation of the parotid and submandibular glands. Unremarkable thyroid gland. Symmetric attenuation of the sternocleidomastoid muscles. No evidence of lymphadenopathy by size criteria. Degenerative changes of cervical spine with prominent anterior osteophyte formation. No fracture. Gavino pao degrees of central canal stenosis and neural foraminal narrowing. Chronic changes of visualized lung parenchyma. CT ANGIOGRAM: Common origin of the left and right common carotid arteries. Right carotid: The innominate artery, common carotid artery have appropriate enhancement and luminal diameter. The carotid bifurcation is unremarkable. There is a loop with a hairpin turn involving the proximal right internal carotid artery. No significant stenosis. Left carotid: Left common carotid artery, carotid bifurcation and internal carotid artery have approp riate enhancement and luminal diameter. Bilateral cervical vertebral arteries are patent throughout their course in the neck. Bilateral subclavian arteries are unremarkable. 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 Right A2 segment is patent and supplied via an anterior commuting artery. Left A1 and A2 segments are unremarkable. Bilateral M1 segments and proximal MCA branches have appropriate enhancement and luminal diameter. Posterior circulation: Both PICA artery origins are unremarkable. Codominant vertebral arteries suppl y a normal appearing basilar artery. Bilateral P1 segments have appropriate enhancement and luminal diameter. IMPRESSION: 1. No evidence of significant stenosis at the level of [place]. 2. No evidence of significant stenosis in the cervical carotid arteries, based on NASCET criteria. Results of study discussed with Dr. Pace on 12/27/2018 at 10:15 AM Code CR Transcribed Date/Time: 12/27/2018 11:25 AM
[2018-12-27] MEDS ORDERED: Aspirin Chewable 81 MG TAB ONE (11:08)
[2018-12-27] MEDS ORDERED: ISOVUE-370 76%-LOCM 1 ML ONE (11:35)
[2018-12-27] MEDS ORDERED: Gadobenate Dimeglumine 529 MG/1 ML (20ML VIAL) ONE (11:41)
--- NOTE | 2018-12-27 12:21 | MRI ---
Exam: Brain MRI with and without contrast HISTORY: Altered mental status. Memory loss. Patient can't repeat himself. Evaluate for stroke. COMPARISON: None FINDINGS: Gradient echo sequence: No hemorrhage Calvarium: Appropriate T1 marrow signal intensity Midline brain parenchyma: Unremarkable Cerebrum:No parenchymal mass, mass effect or midline shift. Brain volume is age-appropriate. Cortical [place]-white matter differentiation is preserved. Scattered T2 and FLAIR white matter hyperintensities likely due to chronic small vessel ischemic change. Small cavitary lacunar infarcts involving the left and right lentiform nuclei. Ventricles: No evidence of hydrocephalus. Sinuses and mastoid air cells: Bilateral maxillary sinus mucous retention cysts. Adequate mastoid air cell aeration. Diffusion: Central arterial flow is maintained. Absent restricted diffusion. Postcontrast images: No pathologic enhancement of the brain parenchyma. IMPRESSION: 1. Absent restricted diffusion. No acute infarct. 2. No pathologic enhancement of the brain parenchyma.
[2018-12-27 13:22] LABS: Troponin I Less than 0.010 ng/mL (< 0.028)
[2018-12-27 14:06] VITALS: BMI 38.5
[2018-12-27] MEDS ORDERED: hydrALAZINE 20 MG/ML VIAL SLOW IVP PRN (15:55)
[2018-12-27] MEDS ORDERED: Nitroglycerin 0.4 MG TAB (25 Tab Bottle) SL PRN ×2 (15:55)
[2018-12-27] MEDS: Carvedilol 6.25 MG TAB PO SCH (16:16)
[2018-12-27] MEDS: Lisinopril 10 MG TAB PO SCH (20:06)
[2018-12-27] MEDS: Diazepam 5 MG TAB PO SCH (20:07)
[2018-12-27] MEDS: TICAGRELOR 90 MG TABLET PO SCH (20:37)
[2018-12-27] MEDS ORDERED: TICAGRELOR 90 MG TABLET PO SCH (21:00)
[2018-12-27] MEDS ORDERED: Rosuvastatin 20 MG TAB PO SCH (21:00)
--- NOTE | 2018-12-28 00:23 | CON ---
DATE OF TELEMEDICINE CONSULTATION WITH OTIS WALKER: 12/27/2018 CHIEF COMPLAINT: Confusion and memory loss. HISTORY OF PRESENT ILLNESS: The patient's gave most of the medical history. The patient reported he thought he was at work and that is the last thing he remembers and he knows it was a Saturday. The patient's stated that somewhere around 9:00 am or so, they were driving down [facility] and the patient suddenly became confused, did not know where he was or what he was doing and he had sudden onset of memory loss. No weakness, numbness, dizziness, or speech problems or vision problems were identified. He is generally healthy. He has been complaining of some mild headache on the left side, which is mostly retro-orbital. PREVIOUS MEDICAL HISTORY: He never had a prior stroke and he also has positive previous medical history for asthma, gastrointestinal disease with diverticulitis, cardiac history with congestive heart failure. PREVIOUS SURGICAL HISTORY: Sleep apnea surgery, cholecystectomy, gastric bypass , right knee orthopedic surgery, and cardiac cath twice. PSYCHIATRIC HISTORY: Positive for anxiety. FAMILY HISTORY: The patient has one sister who is healthy, a brother who at 40 from AIDS. His mother is 84, she has cardiac issues and diabetes. Father in his early 70s from cancer. The patient has 5 children, 2 boys and 3 girls and the youngest daughter is 37 and she has Down syndrome and his first cousin has had a CVA. REVIEW OF SYSTEMS: PULMONARY: Negative for cough or shortness of breath. CARDIOVASCULAR: Negative for chest pain or palpitations. ENDOCRINE: Normal. CORE JAVA ENGINEER: Positive for sudden onset of memory loss. DERMATOLOGIC: Negative for any rash. HEMATOLOGIC: Negative for bleeding diathesis or anemia. PSYCHIATRIC: Positive for anxiety. CURRENT LABORATORY DATA: White count 6.5, hemoglobin 16.8, hematocrit 50.2, platelet count 172. Chemistry; sodium 139, potassium 3.9, chloride 105, bicarb 25, BUN 13, creatinine 0.94, glucose 117. His MRI of the brain was negative for any acute infarct and CT angiogram of [place] was negative for any evidence of significant stenosis and also in the cervical carotid artery, there was no stenosis. MEDICATIONS: At home, the patient is not on aspirin at home. PHYSICAL EXAMINATION: GENERAL APPEARANCE: A well-built, well-nourished man, who is comfortable. VITAL SIGNS: His blood pressure was 199/86, pulse was 60, temperature 97.6, and respiratory rate 16. CHEST: Clear vesicular breathing. CARDIOVASCULAR: S1 and S2 heard. No murmurs. ABDOMEN: Soft. NEUROLOGICAL: Higher intellectual functions; he thought he was at work. He thinks this is Saturday and he thinks it is either December or January 2013. He was not oriented to time. He was oriented to person and self and he knew that the [place] in [place] His cranial nerve examination; pupils are 4 mm, brisk reaction to light. Normal extraocular movements. No facial asymmetry noted. Tongue midline. No atrophy noted. Normal hearing bilaterally. Normal sensation of face bilaterally. Motor, bulk normal, tone normal. Strength 5/5 throughout in upper and lower extremities in iliopsoas, hamstrings, quadriceps, ankle dorsiflexion, plantar flexion, deltoid, biceps, triceps, wrist extension and flexion, finger extension and flexion bilaterally. Sensory normal to touch bilaterally in upper and lower extremities. Cerebellar, normal [id number] and [id number]. Gait, not testable. IMPRESSION: The patient is a 68-year-old man with hypertension and increased stress at home due to personal issues. He is on Brilinta, Crestor, Protonix, Zestril, Lasix, Coreg, and aspirin 81 mg per day at home. His examination shows cognitive difficulty with mostly current knowledge of his location and also not being oriented to time. Otherwise, his rest of the physical examination was normal and his MRI is negative for an acute stroke. CT angiogram is negative for any stenotic lesions. His diagnosis is most likely transient global amnesia either secondary to hypertension or in association with migraine. Most common etiology is unknown. RECOMMENDATIONS: Please monitor him for any changes in neurological status. Complete his workup including echocardiogram and I will see him again tomorrow. Job ID: [id number] [facility]
--- NOTE | 2018-12-28 02:00 | HP ---
PRIMARY CARE PHYSICIAN: Dr. Kalpesh Tena. CHIEF COMPLAINT: Confusion and mental status change. HISTORY OF PRESENT ILLNESS: This is a 68-year-old gentleman with a history of hypertension, hyperlipidemia, coronary artery disease, lumbar spondylosis, asthma and depression who presents to the emergency department with sudden onset of mental status change. Most of the history is obtained from the daughter. She states that the patient has been in his usual state of health and under undue stress due to situations with 1 of his sons. They were going to [facility] this morning when his noticed him trying to put napkins in his drink cup instead of soda and he started asking the same questions over and over. They went to the emergency department for evaluation, had normal CT of the brain, normal workup, but due to the persistence of his confusion, he is admitted for further evaluation. He was admitted. He was seen by Dr. Saenz from Neurology. She reviewed a brain CT. He had a MRI of the brain, which was normal. CT angiogram of the neck and head, which were normal as well. She felt like he was suffering from global amnesia episode. The patient continues to be confused. He has some memory of remote past, but recent past including today and yesterday, he has no recollection. He denies chest pain. Denies shortness of breath. He has some headaches that would come and go. No weakness. No seizures. No syncopal episodes. Denies nausea and vomiting as well. PAST MEDICAL HISTORY: Hypertension, hyperlipidemia, coronary artery disease with recent heart catheterization with Dr. Long in October of 2018, history of gastroesophageal reflux disease for which he follows with Dr. Edouard, sacroiliitis, and chronic back pain. MEDICATIONS: Include: 1. Albuterol p.r.n. 2. Protonix 40 mg daily. 3. Brilinta 90 mg daily. 4. Lasix p.r.n. 5. Atorvastatin 10 mg daily. 6. Nitroglycerin p.r.n. 7. Lisinopril 10 mg daily. 8. Carvedilol 6.25 mg b.i.d. ALLERGIES: AMLODIPINE. PAST SURGICAL HISTORY: Coronary artery catheterizations with stents in 2017, right knee surgery in 1977, throat surgery for sleep apnea in 1981, gastric bypass in 2003, and cholecystectomy in 2004. SOCIAL HISTORY: No smoking. No alcohol. No other drug use. He is . 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 FAMILY HISTORY: Father with lung disease, asthma, lung cancer, prostate cancer. Mother living with heart disease, diabetes, arthritis. Siblings with HIV. Children, some suffering with alcoholism and drug addiction. Of note, from the daughter states that his mother also had an episode of global amnesia, which resolved after about 4 days. REVIEW OF SYSTEMS: CONSTITUTIONAL: As per the history of present illness, he denies any recent fevers, chills, or recent illness. HEENT: Positive headache. No visual or hearing changes. CARDIAC: No chest pain, shortness of breath or palpitations. PULMONARY: Denies cough or hemoptysis. GI: No nausea, vomiting, abdominal pain, melena, or hematochezia. : Denies dysuria or hematuria. NEUROLOGIC: As per the history of present illness. MUSCULOSKELETAL: Positive back pain. PSYCHIATRIC: Positive history of depression and having been under undue stress from his son. PHYSICAL EXAMINATION: VITAL SIGNS: Temperature 97.6, pulse of 60, respirations 16, blood pressure 166/66, was as high as 200/92, pulse oximetry is 98% on room air. GENERAL: He is awake and alert, in no acute distress. He appears comfortable in bed. He does continue to re-ask questions a few minutes after asking them. HEENT: Pupils are equally round, and reactive to light and accommodation. Mucosa is moist. NECK: Supple. No bruits. HEART: Irregular with ectopy. LUNGS: Clear bilaterally. ABDOMEN: Obese, soft, nontender, and nondistended. No hepatosplenomegaly. EXTREMITIES: No clubbing, cyanosis, or edema. 2+ peripheral pulses bilaterally. NEUROLOGIC: Cranial nerves 2 through 12 are grossly intact. Strength is 5/5 in upper and lower extremities. Sensation is intact. He is alert and oriented to person and place. His mini-mental status exam was significantly decreased. LABORATORY DATA: CBC was normal. PT and PTT were normal. Sodium 139, potassium 3.9, chloride 105, CO2 of 25, BUN and creatinine 13 and 0.95 with a GFR of 80. Serum glucose of 117, calcium of 8.6. AST and ALT are normal. Troponin Is are negative x3. IMAGING DATA: CT of the brain was normal. MRI of the brain was normal. CT angiogram of the head and neck were normal. ASSESSMENT AND PLAN: This is a 68-year-old gentleman with a history of hypertension, hyperlipidemia, now with amnestic episode and irregular heart rhythm. 1. Appreciate Dr. Saenz for neurologic consultation and recommendations. No signs of a cerebrovascular accident at this time. 2. Global amnesia, possible secondary to stress and history of depression. We will give a trial of Valium p.r.n. anxiety. 3. Frequent premature ventricular complexes with bigeminy. We will get echocardiogram. Consult Cardiology for evaluation as he recently had a heart catheterization in October of 2018. 4. Hypertension. I will continue his home medications with carvedilol and lisinopril and add diltiazem, which may help with the premature ventricular complexes as well. 5. Coronary artery disease. We will continue Brilinta and Crestor. 6. Gastroesophageal disease. We will continue Protonix. Job ID: [id number]
[2018-12-28 08:18] VITALS: TEMP 97.8
[2018-12-28] MEDS: Carvedilol 6.25 MG TAB PO SCH (08:54)
[2018-12-28] MEDS: Diazepam 5 MG TAB PO SCH (08:55)
[2018-12-28] MEDS: TICAGRELOR 90 MG TABLET PO SCH (08:55)
[2018-12-28] MEDS: Lisinopril 10 MG TAB PO SCH (08:55)
[2018-12-28] MEDS ORDERED: Citalopram 10 MG TAB PO SCH (09:00)
[2018-12-28] MEDS ORDERED: Aspirin 81 mg Enteric Coated Tablet PO SCH (09:00)
--- NOTE | 2018-12-28 10:00 | PRG ---
DATE OF SERVICE: 12/28/2018 SUBJECTIVE: The patient has slightly improved according to and other family members. His mentation is clear. He is less confused, has better recollection of things that have been before yesterday. Still with some memory lapse from yesterday. Apparently, he had a conversation with his son who left him stressed Saturday afternoon, which may have been the trigger of this episode. OBJECTIVE: VITAL SIGNS: Temperature 98.4, pulse of 40 to 66, respirations 16, blood pressure 156/102, pulse ox 94% on room air. GENERAL: He is awake and alert. No acute distress. Speech is clear. HEENT: Mucosa is moist. NECK: Supple. No bruit. HEART: Regular rate and rhythm. LUNGS: Clear. ABDOMEN: Soft. EXTREMITIES: With no edema. NEUROLOGIC: Cranial nerves 2 through 12 are intact. Strength is 5/5 in upper and lower extremities. Mentation seems normal. IMAGING DATA: Echocardiogram is pending. LABORATORY DATA: Other labs are reviewed. ASSESSMENT AND PLAN: This is a 68-year-old gentleman with acute episode of amnesia. 1. Likely transient global amnesia. I appreciate Dr. Saenz and her neurologic consultation and recommendations. 2. Stress reaction. Some improvement with Valium p.r.n. We will start Lexapro daily with close followup. 3. Frequent premature ventricular contractions with bigeminy. Await echocardiogram and Cardiology consult. 4. Coronary artery disease. We will continue Brilinta and Crestor. 5. Hypertension, some better with adding diltiazem. Continue to monitor closely. 6. Disposition. Possible home later today, if okay with Cardiology and Neurology. Job ID: [id number]
[2018-12-28] MEDS ORDERED: Acetaminophen 325 MG TAB PO PRN (10:36)
--- NOTE | 2018-12-28 11:06 | PRG ---
DATE OF TELEMEDICINE SERVICE WITH OTIS SEBASTIÁN: 12/28/2018 CHIEF COMPLAINT: Altered mental status. INTERVAL HISTORY: The patient is now back to his baseline. He is no longer having any memory problems. Current workup, no new lab today. Labs were as reviewed yesterday and his imaging workup was also reviewed yesterday. Brain MRI and CT angio were both negative for any vascular event. PHYSICAL EXAMINATION: VITAL SIGNS: Blood pressure 156/102, pulse is 42, temperature 97.8. NEUROLOGIC: Higher intellectual functions. The patient is oriented to time, place, and person today. Cranial nerves, normal extraocular movements. No facial asymmetry noted. Motor, normal bulk and tone, and strength is 5/5 throughout in both upper and lower extremities. IMPRESSION: The patient with likely transient global amnesia. He is currently back to baseline. His examination is normal at this time. In view of his medical history, possible differential is transient ischemic attack versus transient global amnesia. RECOMMENDATIONS: Continue aspirin and statin for stroke prophylaxis. The patient can follow up with his primary care doctor. Okay to discharge from neuro standpoint. Job ID: [id number] [facility]
--- NOTE | 2018-12-28 14:11 | CON ---
DATE OF CONSULTATION: 12/28/2018 REASON FOR CONSULTATION: PVCs. PRIMARY WATER RESOURCE ENGINEER: Gio Long. HISTORY OF PRESENT ILLNESS: Mr. Ly is a pleasant 68-year-old white gentleman, who comes to the hospital for altered mentation. He was diagnosed with either a transient global amnesia given his recent amount of stress versus a small TIA. His mentation is back to normal. Cardiology has been consulted as on monitoring. He is noticed to have several PVCs. He had a heart catheterization about [address] Long. He has a widely patent LAD stent and pinched off ostial diagonal branch that is not amenable to any type of revascularization. This has been treated medically. Mr. Ly denies any chest pain, tightness, pressure. No shortness of breath. He denies feeling his PVCs as well. PAST MEDICAL HISTORY: 1. Coronary artery disease as above. 2. Hypertension. 3. Hyperlipidemia. 4. GERD. 5. Sacroiliitis. 6. Chronic back pain. OUTPATIENT MEDICATIONS: 1. Albuterol p.r.n. 2. Protonix. 3. Brilinta 90 mg twice a day. 4. Lasix p.r.n. 5. Atorvastatin 10 mg a day. 6. Nitroglycerin sublingual p.r.n. 7. Lisinopril 10 mg a day. 8. Coreg 6.25 b.i.d. ALLERGIES: AMLODIPINE. PAST SURGICAL HISTORY: 1. Stents in 2007 to the LAD, stable CAD on recent catheterization. 2. Right knee surgery. 3. Throat surgery for sleep apnea. 4. Gastric bypass in 2003. 5. Cholecystectomy. SOCIAL HISTORY: No alcohol, tobacco, or drugs. FAMILY HISTORY: Noncontributory. Child with alcoholism and drug use, source of most of his stress. REVIEW OF SYSTEMS: A 12-point review of systems was done and was all negative unless stated in the history of present illness. PHYSICAL EXAMINATION: VITAL SIGNS: Temperature 97.8, pulse 61, respiratory rate 20, saturating 96% on room air, and blood pressure 102/70. GENERAL: Awake, alert, and oriented x3, in no distress. HEENT: Normocephalic and atraumatic. NECK: Supple. LUNGS: Clear. CARDIOVASCULAR: S1 and S2. No S3 or S4. No murmurs. ABDOMEN: Soft. Positive bowel sounds. EXTREMITIES: No edema. SKIN: Warm and dry. LABORATORY DATA: Laboratory work was reviewed. CBC, coags and chemistries were reviewed, unremarkable. Total bilirubin is 1.3, likely elevated. Troponin is negative x3. EKGs were reviewed. Monitoring was reviewed. ASSESSMENT: 1. Premature ventricular contractions. 2. Coronary artery disease, stable. No acute coronary syndrome. 3. Altered mentation, probably an amnestic process, resolved. PLAN: 1. Agree with blood pressure control, beta blockers and calcium channel blockers. We will continue current regimen for now. 2. He will follow up with Dr. Lnog in 2 to 3 months. He probably will need a 24-Holter monitor to count the burden of PVCs. Currently, it is not too much and his most recent echocardiogram showed normal LV function of 50% to 55%. Thank you for letting me to participate in the care of your patient. We will sign off. He may be discharged home. Followup with Dr. Long as above. Job ID: [id number]
[2018-12-28 14:56] VITALS: BP 127/80
== END 2018-12-28 16:04 | disposition home or self-care (01) | DRG 72 ==
LOC: ERS 09:24 → ERHOLD 11:40 → 2SE 13:18
PROVIDERS: ADMIT Family Medicine; ATTEND Family Medicine
DX: G45.4 Transient global amnesia (principal); I11.0 Hypertensive heart disease with heart failure; F41.9 Anxiety disorder, unspecified; J45.909 Unspecified asthma, uncomplicated; I50.9 Heart failure, unspecified; E78.5 Hyperlipidemia, unspecified; I25.10 Atherosclerotic heart disease of native coronary artery without angina pectoris; F32.9 Major depressive disorder, single episode, unspecified; M47.896 Other spondylosis, lumbar region; I49.3 Ventricular premature depolarization; K21.9 Gastro-esophageal reflux disease without esophagitis; Z88.8 Allergy status to other drugs, medicaments and biological substances; Z90.49 Acquired absence of other specified parts of digestive tract
CPT/HCPCS: 36415; 36416; 70450; 70496; 70498; 70553; 80053; 82550; 84484; 85025; 85610; 85730; 86850; 86900; 86901; 93005; 93306; A9577; Q9966

== ENCOUNTER 2019-05-24 13:42 | Observation (INO) | payer OTHER, MEDICARE ==
[~2019-05-24 13:42] MED LIST: Iopamidol-370 76% 500 ML 1 ML ONE
[2019-05-24 14:11] LABS: #Basophils 0.1 thou/uL (0.0-0.2); #Eosinphils 0.3 thou/uL (0.0-0.7); #Lymphocytes 1.6 thou/uL (1.20-3.40); #Monocytes 0.5 thou/uL (0.11-0.59); #Neutrophils 4.8 thou/uL (1.40-6.50); %Basophils 0.9 % (0.0-1.0); %Eosinophils 4.2 % (0.0-10.0); %Lymphocytes 21.8 % (21.0-51.0); %Monocytes 6.6 % (0.0-10.0); %Neutrophils 66.6 % (42.0-75.0); Hemoglobin 17.5 g/dL (14.0-18.0); Mean Corpuscular HGB CONC 34.7 g/dL (32.0-36.0); Mean Corpuscular Hemoglobin 31.1 pg (27.0-31.0); Mean Corpuscular Volume 89.8 fL (78.0-98.0); Mean Platelet Volume 8.7 fL (7.4-10.4); Platelet Count 181 thou/uL (130-400); RBC Distribution Width 12.8 % (11.5-14.5); Red Blood Cell (RBC) Count 5.61 mill/uL (4.70-6.10); White Blood Cell (WBC) Count 7.2 thou/uL (4.8-10.8)
[2019-05-24] MEDS ORDERED: Furosemide 40 MG/4 ML VIAL ONE (14:11)
[2019-05-24] MEDS ORDERED: Nitroglycerin 2% Ointment 1 INCH/1 GM Packet ONE (14:11)
[2019-05-24] MEDS ORDERED: Aspirin Chewable 81 MG TAB ONE (14:25)
[2019-05-24 14:31] LABS: ALT (SGPT) 12 U/L (8-55); AST (SGOT) 16 U/L (5-34); Albumin 4.1 g/dL (3.4-4.8); Alkaline Phosphatase 106 U/L (40-110); Anion Gap 13 mmol/L (10-20); BUN (Urea Nitrogen) 13 mg/dL (8.4-25.7); Bilirubin, Total 1.6 mg/dL (0.2-1.2); Calc. Creatinine Clearance 0 mL/min (70-130); Calcium 9.3 mg/dL (7.8-10.44); Carbon Dioxide 23 mmol/L (23-31); Chloride 106 mmol/L (98-107); Estimated GFR-MDRD 83; Glucose 88 mg/dL (80-115); Potassium 4.1 mmol/L (3.5-5.1); Protein, Total 7.1 g/dL (5.8-8.1); Sodium 138 mmol/L (136-145)
--- NOTE | 2019-05-24 15:02 | RAD ---
PORTABLE UPRIGHT FRONTAL CHEST RADIOGRAPH: 05/24/2019 HISTORY: Chest tightness. COMPARISON: 06/13/2018 FINDINGS: There is tortuosity of the descending thoracic aorta. The lungs appear clear. No acute findings. IMPRESSION: Stable appearance of the chest. No acute findings. POS: [facility]
--- NOTE | 2019-05-24 15:45 | CT ---
CT ANGIOGRAM CHEST: 05/24/2019 HISTORY: Elevated D-dimer. Assess for pulmonary arterial embolism. COMPARISON: None. TECHNIQUE: Axial CT imaging at 2.5 mm intervals through the chest with IV contrast using CT angiogram protocol. Coronal and sagittal 3D reformatted imaging obtained. FINDINGS: No axillary, mediastinal or hilar lymphadenopathy. The descending thoracic aorta is tortuous. There i s no filling defect seen within the pulmonary arterial vasculature to suggest the presence of acute p ulmonary embolism. Coronary arterial calcification is noted. There is no discrete pulmonary parenchymal mass lesion or nodule noted. There is a bowel suture line within the left upper quadrant and there is suture material associated w ith the stomach. Cholecystectomy clips are present. Osseous structures demonstrate no acute findings. There is multilevel degenerative change within the spine with disk space narrowing and anterior oste ophyte formation. No worrisome lytic or blastic bone lesion. IMPRESSION: No evidence for acute pulmonary embolism. POS: [facility]
[2019-05-24 17:31] LABS: Troponin I 0.031 ng/mL (< 0.028)
[2019-05-24] MEDS ORDERED: Ondansetron PF 4 MG/2 ML Vial IVP PRN ×2 (18:33→20:34)
[2019-05-24] MEDS ORDERED: Ondansetron ODT 4 MG TAB SL PRN (18:33)
[2019-05-24 19:11] VITALS: BMI 37.8
[2019-05-24 20:14] LABS: Troponin I 0.029 ng/mL (< 0.028)
[2019-05-24] MEDS ORDERED: Loperamide HCl 2 MG CAP PO PRN (20:24)
[2019-05-24] MEDS ORDERED: Acetaminophen 325 MG TAB PO PRN (20:34)
[2019-05-24] MEDS ORDERED: Ondansetron ODT 4 MG TAB PO PRN (20:34)
[2019-05-24] MEDS ORDERED: Cyclobenzaprine 10 MG TAB PO PRN (20:35)
[2019-05-24] MEDS: TICAGRELOR 90 MG TABLET PO SCH (20:48)
[2019-05-24] MEDS: Carvedilol 6.25 MG TAB PO SCH (20:48)
[2019-05-24] MEDS: Lisinopril 10 MG TAB PO SCH (20:49)
[2019-05-24] MEDS: Potassium Chloride 10 MEQ TAB PO SCH (20:49)
[2019-05-24] MEDS ORDERED: Furosemide 40 MG/4 ML VIAL SLOW IVP SCH (21:00)
--- NOTE | 2019-05-24 21:40 | HP ---
PRIMARY CARE DOCTOR: Dr. Kalpesh Tena. PRIMARY PROCUREMENT REPRESENTATIVE: Dr. Long. CHIEF COMPLAINT: Shortness of breath with chest tightness. HISTORY OF PRESENT ILLNESS: The patient is a 68-year-old male with coronary artery disease, and diastolic heart failure, presented to the emergency room with above complaints. Around 9:00 a.m., the patient developed sudden onset of chest discomfort along with shortness of breath. He describes the pain as pressure-like. He took two sublingual nitroglycerin after which his pain significantly improved. He takes Lasix 40 mg daily. Lasix was changed to torsemide 20 mg daily 3 days ago. However, he has not filled this prescription yet. He rates his pain as 2/10. He denies any nausea, vomiting, diaphoresis or syncope. He also noticed significant swelling in his lower extremity. He was short of breath on mild exertion. In the emergency room, his initial vital signs showed temperature 97.5, respirations 20, pulse of 62 with a blood pressure of 187/105 with O2 saturation 99% on room air. His chest x-ray was consistent with volume overload. CT angiogram of the chest was negative for pulmonary embolism. He received 40 mg of IV Lasix along with 1 inch nitro patch and aspirin in the emergency room. He denies any chest discomfort at this time. He has diuresed around 2 L so far. PAST MEDICAL HISTORY: 1. Hypertension. 2. Hyperlipidemia. 3. Coronary artery disease. His last cardiac catheterization was in October of this year. He has a stent in the LAD. 4. Chronic diastolic heart failure. 5. GERD. 6. Chronic diarrhea, followed by Dr. Edouard. 7. Chronic low back pain. 8. Anxiety. PAST SURGICAL HISTORY: 1. Cardiac catheterization. 2. Surgery for obstructive sleep apnea. 3. Cholecystectomy. 4. Gastric bypass. 5. Right knee surgery. ALLERGIES: THE PATIENT IS ALLERGIC TO AMLODIPINE. CURRENT HOME MEDICATIONS: 1. Lipitor 40 mg daily. 2. Vitamin B12 2500 mcg daily. 3. Flexeril as needed. 4. Imodium 4 tablets daily. He also takes Imodium liquid on a daily basis. 5. Potassium chloride 10 mEq daily. 6. Torsemide 20 mg daily. 7. Sublingual nitroglycerin as needed. 8. Aspirin 81 mg daily. 9. Carvedilol 6.25 mg b.i.d. 10. Lisinopril 10 mg b.i.d. 11. Protonix 40 mg daily. 12. Brilinta 90 mg b.i.d.. SOCIAL HISTORY: The patient currently lives at home. He denies current use of smoking, alcohol, or drug use. He makes his own decision with the help of his . 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 FAMILY HISTORY: Father had lung and prostate cancer. Mother with heart disease. REVIEW OF SYSTEMS: All other review of systems was reviewed and were found negative. PHYSICAL EXAMINATION: VITAL SIGNS: As discussed above. GENERAL: A 68-year-old male, in no apparent distress. Feels significantly better with IV Lasix. HEENT: Head, atraumatic and normocephalic. Sclerae anicteric. Moist mucous membranes. No oral lesion. NECK: Supple. No JVD appreciated. No carotid bruit. LUNGS: Clear to auscultation bilaterally. No wheezing, rales, or rhonchi. HEART: S1, S2 present. Regular rate and rhythm. No rubs or gallops. ABDOMEN: Soft, nontender, obese. Bowel sounds present. EXTREMITIES: 3+ edema in bilateral lower extremity up to the knees. No calf tenderness. SKIN: Warm and dry. LYMPH NODES: No palpable lymph nodes in the neck. PERIPHERAL VASCULAR: Radial pulses palpable bilaterally. MUSCULOSKELETAL: No joint swelling tenderness. SKIN: Warm and dry. LABORATORY FINDINGS: BNP was normal. Troponin of 0.031. Total bilirubin 1.6, BUN 13, creatinine 0.91. WBC 7.2 with hemoglobin 17.5, platelet 181. D-dimer was 0.47. CT angiogram of the chest by my review as discussed above. EKG by my review showed sinus rhythm without significant ST-T wave changes. IMPRESSION: 1. Chest discomfort, rule out acute coronary syndrome. 2. Acute on chronic diastolic heart failure exacerbation. 3. Hypertension. 4. Coronary artery disease, status post LAD stent, on aspirin and Brilinta. 5. Obesity with a BMI of 37.8. 6. Chronic kidney disease, stage 2. 7. Elevated troponin, suspected to be secondary to congestive heart failure/type 2 myocardial infarction. 8. Elevated LFTs secondary to passive hepatic congestion. 9. Chronic diarrhea. 10. Anxiety. PLAN: The patient will be monitored on the telemetry unit as 23-hour observation. We will continue IV Lasix. We will discontinue nitroglycerin patch. We will resume carvedilol, lisinopril, and Brilinta tonight. From tomorrow morning, we will start him on Lasix 40 mg b.i.d. We will replace potassium while on Lasix. We will resume all other home medications. Consult Cardiology, Dr. Long. We will add fluid restriction 1500 mL a day. Cardiac Rehab consultation. His last echocardiogram was in November of 2018, that showed ejection fraction 55% to 60% with grade 1 of 3 diastolic dysfunction with dilated aortic root at 4 cm. He was extensively counseled on importance of fluid restriction. Plan of care was discussed with the patient in detail, he stated understanding. Job ID: [id number]
[2019-05-24] MEDS ORDERED: Nitroglycerin 2% Ointment 1 INCH/1 GM Packet TOP SCH (23:59)
[2019-05-25] MEDS: Furosemide 40 MG/4 ML VIAL SLOW IVP SCH ×2 (05:59→14:17)
[2019-05-25 07:32] LABS: Albumin 3.9 g/dL (3.4-4.8)
[2019-05-25 07:33] LABS: Chloride 103 mmol/L (98-107); Potassium 3.9 mmol/L (3.5-5.1); Sodium 138 mmol/L (136-145)
[2019-05-25 07:34] LABS: Globulin 2.8 g/dL (2.4-3.5); Glucose 97 mg/dL (80-115); Protein, Total 6.7 g/dL (5.8-8.1)
[2019-05-25 07:35] LABS: Anion Gap 11 mmol/L (10-20); Carbon Dioxide 28 mmol/L (23-31)
[2019-05-25 07:36] LABS: Bilirubin, Total 1.9 mg/dL (0.2-1.2)
[2019-05-25 07:37] LABS: Alkaline Phosphatase 98 U/L (40-110)
[2019-05-25 07:38] LABS: BUN (Urea Nitrogen) 12 mg/dL (8.4-25.7); Calc. Creatinine Clearance 132 mL/min (70-130); Estimated GFR-MDRD 80
[2019-05-25 07:39] LABS: AST (SGOT) 15 U/L (5-34); Magnesium 2.1 mg/dL (1.6-2.6)
[2019-05-25 07:40] LABS: ALT (SGPT) 11 U/L (8-55)
[2019-05-25] MEDS: TICAGRELOR 90 MG TABLET PO SCH (08:37)
[2019-05-25] MEDS: Potassium Chloride 10 MEQ TAB PO SCH (08:38)
[2019-05-25] MEDS: Carvedilol 6.25 MG TAB PO SCH (08:39)
[2019-05-25] MEDS: Lisinopril 10 MG TAB PO SCH (08:39)
[2019-05-25] MEDS ORDERED: Atorvastatin Calcium 40 MG TAB PO SCH (09:00)
[2019-05-25] MEDS ORDERED: Loperamide HCl 2 MG CAP PO SCH (09:00)
[2019-05-25] MEDS ORDERED: Aspirin 81 mg Enteric Coated Tablet PO SCH (09:00)
[2019-05-25 12:03] VITALS: TEMP 99.5
[2019-05-25 12:44] VITALS: BP 139/92
[2019-05-25] MEDS ORDERED: Potassium Chloride 20 MEQ TAB PO SCH ×2 (14:30)
--- NOTE | 2019-05-25 14:58 | DIS ---
DATE OF ADMISSION: 05/24/2019 DATE OF DISCHARGE: 05/25/2019 DISCHARGE DISPOSITION: Home. DISCHARGE INSTRUCTIONS: Follow up with primary care physician, Dr. Kalpesh Tena. 2 L per day, fluid restriction was emphasized. He was counseled on daily weight monitoring. DISCHARGE MEDICATIONS: Same as admission medication. No changes were made. The patient was seen and examined on the day of discharge. Denies any new complaints. Shortness of breath has significantly improved. BRIEF HOSPITAL COURSE: The patient is a 68-year-old male with diastolic heart failure and coronary artery disease, presented to the hospital with shortness of breath and chest tightness. His workup was consistent with congestive heart failure exacerbation. CT angiogram of the chest was negative for pulmonary embolism. It showed good improvement with diuretics. Overnight, he has lost 5 pounds. The patient has been cleared by Cardiology for discharge. FINAL DIAGNOSES: 1. Shortness of breath/chest discomfort secondary to acute on chronic diastolic heart failure exacerbation, improved. 2. Hypertension. 3. Coronary artery disease, status post left anterior descending stent, on aspirin and Brilinta. 4. Obesity with a BMI of 37.8. 5. Type 2 myocardial infarction, present on admission. 6. Chronic kidney disease, stage 2. 7. Elevated LFTs secondary to passive hepatic congestion. 8. Chronic diarrhea, on daily Imodium. 9. Anxiety. 10. Abnormal LFTs secondary to passive hepatic congestion. 11. Chronic kidney disease, stage 2. PLAN: Plan of care was discussed with the patient in detail. He stated understanding. Job ID: [id number]
--- NOTE | 2019-05-25 15:06 | PRG ---
DATE OF SERVICE: 05/25/2019 SUBJECTIVE: Mr. Ly was admitted yesterday, actually brought in for observation. He had chest tightness which got better with nitroglycerin, then came back, did not seem to change a lot with nitroglycerin. Here, he was found to be clinically in diastolic heart failure. He was volume overloaded, received some diuretics with good diuresis. The patient still has edema, but declined staying any longer. He is pain-free now. He really states it was more of a pressure feeling in his chest and it only got somewhat better first few minutes with nitroglycerin, then recurred. It sounds more like he was in congestive heart failure. The patient has a history of percutaneous coronary stent implantation. He did have a drug-coated stent placed in his left anterior descending artery crossed a [id number] sized diagonal branch and then underwent catheterization on November 13 and did not have any stenosis in the LAD, did have an ostial lesion in the diagonal branch, really only could be treated medically. The PCI had been done previously on 06/15/2018. The stent was a 4.0 x 12 mm Synergy post dilated with a 4.5-mm balloon. The patient received intravenous diuretics here and with a good diuresis. We have advised him to stay in the hospital further to complete the diuresis, but he is leaving against what we recommended to him. OBJECTIVE: VITAL SIGNS: Current blood pressure 159/86, pulse 62 and regular. LUNGS: Clear. CARDIAC: Normal S1, normal S2. ABDOMEN: Obese, nontender. EXTREMITIES: There is no edema. LABORATORY DATA: The peak troponin 0.031. ASSESSMENT: 1. Likely diastolic heart failure, although the BNP was not elevated yesterday, I suspect that may be today, but it was not drawn. 2. Mild hypokalemia, potassium 3.9. 3. Hypertension. 4. Obesity. PLAN: Recommend he would continue the diuresis, but he declines that, he wishes to be released home. He understands that he may continue to retain fluid and he will have to come back for further diuresis especially if he still has edema in his digestive system, he may not absorb the diuretic, but he declines that and states he wants to go home. Job ID: [id number]
--- NOTE | 2019-05-29 16:14 | EKG ---
Test Reason : CP Blood Pressure : / mmHG Vent. Rate : 062 BPM Atrial Rate : 062 BPM P-R Int : 166 ms QRS Dur : 098 ms QT Int : 422 ms P-R-T Axes : 035 002 027 degrees QTc Int : 428 ms Normal sinus rhythm Normal ECG Confirmed by DINA HANSEN, LEONARDO ([id number]), editor & co founder JACE GORDON ([id number]) on 05/29/2019 4:12:51 PM Referred By: Confirmed By:LEONARDO ARROYO MD
== END 2019-05-25 15:06 | disposition home or self-care (01) ==
LOC: ERS 13:42 → 2SW 16:42
PROVIDERS: ADMIT Internal Medicine; ATTEND Internal Medicine
DX: I13.0 Hypertensive heart and chronic kidney disease with heart failure and stage 1 through stage 4 chronic kidney disease, or unspecified chronic kidney disease (principal); N18.2 Chronic kidney disease, stage 2 (mild); I50.33 Acute on chronic diastolic (congestive) heart failure; I25.10 Atherosclerotic heart disease of native coronary artery without angina pectoris; E78.5 Hyperlipidemia, unspecified; K21.9 Gastro-esophageal reflux disease without esophagitis; F41.9 Anxiety disorder, unspecified; G89.29 Other chronic pain; M54.5 Low back pain; K52.9 Noninfective gastroenteritis and colitis, unspecified; G47.33 Obstructive sleep apnea (adult) (pediatric); E87.6 Hypokalemia; K76.1 Chronic passive congestion of liver; E66.9 Obesity, unspecified; Z68.37 Body mass index [BMI] 37.0-37.9, adult; Z79.02 Long term (current) use of antithrombotics/antiplatelets; Z79.82 Long term (current) use of aspirin; Z79.899 Other long term (current) drug therapy; Z88.8 Allergy status to other drugs, medicaments and biological substances; Z98.84 Bariatric surgery status
CPT/HCPCS: 36415; 71045; 71275; 80053; 83735; 83880; 84484; 85025; 85379; 93005; 93798; 94760; 96374; 96375; G0378; J1940; Q9967

== ENCOUNTER 2020-07-18 06:47 | Outpatient (CLI) | payer BC, MEDICARE ==
[2020-07-18 11:00] LABS: Hemoglobin 16.6 g/dL (14.0-18.0)
[2020-07-18 11:30] LABS: Anion Gap 16 mmol/L (10-20); BUN (Urea Nitrogen) 11 mg/dL (8.4-25.7); Calc. Creatinine Clearance 0 mL/min (70-130); Calcium 7.7 mg/dL (7.8-10.44); Carbon Dioxide 21 mmol/L (23-31); Chloride 108 mmol/L (98-107); Glucose 125 mg/dL (80-115); Potassium 4.5 mmol/L (3.5-5.1); Sodium 140 mmol/L (136-145)
--- NOTE | 2020-07-18 13:36 | EKG ---
Test Reason : Blood Pressure : / mmHG Vent. Rate : 060 BPM Atrial Rate : 060 BPM P-R Int : 164 ms QRS Dur : 100 ms QT Int : 450 ms P-R-T Axes : 046 009 -46 degrees QTc Int : 450 ms Sinus rhythm with frequent Premature ventricular complexes Minimal voltage criteria for LVH, may be normal variant Nonspecific T wave abnormality Abnormal ECG Confirmed by ELISHA ROSS ([id number]) on 07/18/2020 1:35:54 PM Referred By: PAULY Confirmed By:ELISHA ROSS
[2020-07-18 18:18] LABS: SARS-CoV-2 PCR by NAA DETECTED (NotDetected)
== END 2020-07-18 06:48 | disposition home or self-care (01) ==
LOC: LABBT 06:47
PROVIDERS: ATTEND Specialist
DX: U07.1 COVID-19 (principal); Z01.818 Encounter for other preprocedural examination; R22.1 Localized swelling, mass and lump, neck; L72.3 Sebaceous cyst
CPT/HCPCS: 80048; 85014; 85018; 87635; 93005; 93010; U0003; U0005

== ENCOUNTER 2020-08-04 09:00 | Observation (INO) | payer BC, MEDICARE ==
[2020-08-02 13:14] VITALS: BMI 38.3
[2020-08-04] MEDS ORDERED: PHENYLEPHRINE-NS 100 MCG/ML 10 ML SYRINGE ONE (09:39)
[2020-08-04] MEDS ORDERED: Ondansetron PF 4 MG/2 ML Vial ONE (09:39)
[2020-08-04] MEDS ORDERED: PROPOFOL 200 MG/20 ML VIAL ONE (09:39)
[2020-08-04] MEDS ORDERED: Rocuronium Bromide 10 MG/ML (10ML VIAL) ONE (09:39)
[2020-08-04] MEDS ORDERED: ePHEDrine 50 MG/ML VIAL ONE (09:39)
[2020-08-04] MEDS ORDERED: Dexamethasone 20 MG/5 ML VIAL ONE (09:39)
[2020-08-04] MEDS ORDERED: Lidocaine 1% PF 5 ML VIAL ONE (09:39)
[2020-08-04] MEDS ORDERED: Labetalol HCl 100 MG/20 ML VIAL ONE (09:39)
[2020-08-04] MEDS ORDERED: Bupivacaine 0.25% HCL 30 ML VIAL ONE (09:59)
[2020-08-04] MEDS ORDERED: EPINEPHrine 1 MG/ML AMP ONE (09:59)
[2020-08-04] MEDS ORDERED: XYLOCAINE 2%-EPI 1:100,000 20 ML VIAL ONE (10:01)
[2020-08-04] MEDS ORDERED: Fentanyl 100 MCG/2 ML VIAL ONE ×2 (10:03→15:28)
[2020-08-04] MEDS ORDERED: SUGAMMADEX SODIUM 200 MG/2 ML VIAL ONE (10:03)
[2020-08-04] MEDS ORDERED: Nitroglycerin 0.4 MG TAB (25 Tab Bottle) ONE (12:20)
[2020-08-04] MEDS ORDERED: Nitroglycerin 2% Ointment 1 INCH/1 GM Packet ONE (12:25)
[2020-08-04] MEDS ORDERED: Morphine 4 MG/ML VIAL ONE ×3 (12:25→15:18)
[2020-08-04] MEDS ORDERED: Aspirin Chewable 81 MG TAB ONE (12:31)
[2020-08-04] MEDS ORDERED: Promethazine HCl 25 MG/ML VIAL ONE (12:47)
[2020-08-04] MEDS ORDERED: Famotidine/PF 20 mg/2ml Vial ONE (13:02)
[2020-08-04 13:09] LABS: CKMB 1.8 ng/mL (0-6.6)
[2020-08-04] MEDS ORDERED: Clopidogrel Bisulfate 75 MG TAB PO SCH (14:30)
[2020-08-04] MEDS ORDERED: Lisinopril 5 MG TAB PO SCH (14:30)
[2020-08-04 17:31] LABS: Troponin I 0.019 ng/mL (< 0.028)
[2020-08-04] MEDS ORDERED: Sodium Chloride 0.9% 10 ML ONE (17:42)
[2020-08-04] MEDS ORDERED: Cyclobenzaprine 10 MG TAB PO PRN (19:18)
[2020-08-04] MEDS ORDERED: Labetalol HCl 100 MG/20 ML VIAL SLOW IVP PRN (19:18)
[2020-08-04] MEDS ORDERED: Nitroglycerin 0.4 MG TAB (25 Tab Bottle) SL PRN (19:18)
[2020-08-04] MEDS ORDERED: Acetaminophen 325 MG TAB PO PRN (19:18)
[2020-08-04] MEDS ORDERED: Temazepam 15 MG CAP PO PRN (19:18)
[2020-08-04] MEDS ORDERED: Sucralfate 1 GM/10 ML UDCUP PO PRN (19:29)
[2020-08-04 19:46] LABS: Troponin I Less than 0.010 ng/mL (< 0.028)
[2020-08-04] MEDS: Lisinopril 5 MG TAB PO SCH (20:17)
[2020-08-04] MEDS: Lisinopril 10 MG TAB PO SCH (21:25)
[2020-08-04] MEDS: Nitroglycerin 2% Ointment 1 INCH/1 GM Packet TOP SCH (22:20)
[2020-08-04] MEDS: Carvedilol 6.25 MG TAB PO SCH (22:20)
--- NOTE | 2020-08-04 22:37 | CON ---
DATE OF CONSULTATION: 08/04/2020 REASON FOR CONSULTATION: Chest pain. HISTORY OF PRESENT ILLNESS: Mr. Doc Ly is a 69-year-old gentleman with history of coronary artery disease. He was found to have a neck mass and underwent successful biopsy today. It was noted that he was very hypertensive on arrival just prior to the surgery. The surgery was carried out successfully uneventfully, but in the postoperative period, the patient began having chest pain. EKG did not show any ischemia. He was given nitrates and some morphine. Continued to have chest pain, then it went away and then had some recurrent pain subsequently and I was consulted. The patient does have a previous cardiac history. He did undergo cardiac catheterization for chest pain in 2014, at that time he was found to have no evidence of any significant obstructive coronary disease in any of the major vessels. The only stenosis was the diagonal branch ostial lesion. The patient had increasing amounts of chest pain in 2018, he underwent cardiac catheterization, did have a stenosis in the LAD and the ostial diagonal, but the ostial diagonal lesion was in a vessel that was relatively small and no other obstructive stenosis. Dr. Lei saw the patient. We all agreed that there did not seem to be any obstruction of any significance in the right coronary at the circumflex and that therefore either medical therapy or stenting would be appropriate. In view of the continued chest pain, he underwent stent implantation of the LAD that was done in October 2018, done successfully. It was noted at that time and also when I reviewed the films that the antegrade flow was somewhat slow and the vessels were somewhat aneurysmal. I suspect he has some small vessel microvascular disease. He did undergo successful stenting as mentioned, a 4.0 x 12 drug-eluting stent was placed and was post dilated with a 4.5 mm balloon at 11 atmospheres. He did have some chest pain subsequently following that and was scheduled for cardiac catheterization due to that and recurrent pain, came electively to have the catheterization, but then started having chest pain in the PCU prior to the catheterization. We took him emergently. The stent was widely patent with good flow. He was 6 months post stent implantation, at that time still had an ostial diagonal lesion, not amenable to percutaneous therapy as stenting the small vessel could jeopardize the large vessel. He continued to have chest pain off and on since then. He has also had high blood pressure, it has been somewhat labile, difficult to control. He did have allergic reaction to amlodipine. The patient otherwise was found to have this mass in his neck as mentioned, which has been biopsied today. He also recently had COVID. Also history of hypokalemia. MEDICATIONS: At home included: 1. Aspirin. 2. Torsemide. 3. Clopidogrel. 4. Isosorbide. 5. Famotidine. 6. Potassium. He had only been off the aspirin and Plavix for couple of days. ALLERGIES: MENTIONED. REVIEW OF SYSTEMS: CONSTITUTIONAL: No significant weight gain or loss. VISION: No changes. HEARING: No changes. PULMONARY: No cough or wheezing. GASTROINTESTINAL: No nausea, vomiting, diarrhea. SKIN: No rashes. NEUROLOGIC: No unilateral weakness or numbness. PSYCHIATRIC: No unusual depression or anxiety. PHYSICAL EXAMINATION: GENERAL: This is a pleasant 69-year-old gentleman. He is obese. VITAL SIGNS: 5 feet 11 inches tall, 275 pounds. Blood pressure was high in the operating room. Please see the notes. Postoperatively, it was 140-180 systolic, pulse in the 60s. He is on beta-madison. LUNGS: Clear. CARDIAC: Normal S1, normal S2. ABDOMEN: Obese and nontender. EXTREMITIES: Warm and dry. No clubbing, cyanosis or edema. EKG showed no ischemia. Troponin level had been normal at less than 0.010. ASSESSMENT: 1. Status post successful biopsy of neck mass. 2. Chest pain of unclear etiology, potentially cardiac. He does look to have likely small-vessel or microvascular disease. Looking back to his previous films, there was some slow antegrade flow. However, he also has had a stent placed in his LAD in 2018 and 6 months later is widely patent. It is a large diameter stent which would expect a low restenosis rate of 4.5 mm x 12 stent drug-coated, also stenosis in a diagonal branch. 3. Hypertension. PLAN: 1. Add lisinopril. 2. Nitrates. 3. Cardiac enzymes. 4. We previously tried Ranexa and this was not effective in his case. I believe he also had some intolerance to it, but it was not effective. 5. Re-evaluate tomorrow. Hopefully, the patient's pain resolved. If the patient's pain continues, if we have to, another cardiac catheterization could be done, but in view of the lack of any EKG changes or troponin changes, it is unlikely this is a major epicardial vessel causing his problems. Thank you. We will follow with you. Job ID: [id number]
[2020-08-05] MEDS ORDERED: Acetaminophen 325 MG TAB ONE (00:08)
--- NOTE | 2020-08-05 01:16 | HP ---
PRIMARY CARE PHYSICIAN: Dr. Tena. CHIEF COMPLAINT: Chest pain. HISTORY OF PRESENT ILLNESS: Mr. Ly is a pleasant 69-year-old gentleman, who has a history of coronary artery disease, hypertension, hyperlipidemia, who was in the hospital for an elective removal of a sebaceous cyst. The patient had the procedure done by Dr. Gray. After he was awakened from anesthesia, he noticed some pain in the center of his chest. He says that it was pain "big time" and rated it about an 8/10. He says it radiated to his shoulder and started to get progressively worse. He also noted some nausea as well. He denies any shortness of breath or diaphoresis. He says that it started to improve, but then had another episode. By this time, his stove fitter was called, Dr. Long and he had a nitroglycerin patch placed and he was given Plavix 150 mg and he says now that the pain has essentially gone away. He also noted that his blood pressure was extremely high as well. The patient says he has had chest pain off and on. He has a history of coronary artery disease with stent placement. The patient also notes that his blood pressure was extremely high as well and says that prior to this episode, his blood pressure "just shot up." Otherwise, no other complaints. He has stable lower extremity edema. He says he has had a cough off and on, but he says he was recovering from COVID, which he had about 3 weeks ago. Otherwise, no other complaints. REVIEW OF SYSTEMS: All systems were reviewed and are negative except for that mentioned in the history of present illness. PAST MEDICAL HISTORY: Significant for hypertension, hyperlipidemia, coronary artery disease, gastroesophageal reflux disease, chronic low back pain as well as anxiety. PAST SURGICAL HISTORY: He has had a cardiac stent placement, obstructive sleep apnea, cholecystectomy, gastric bypass, and right knee surgery. ALLERGIES: TO AMLODIPINE, WHICH CAUSES HIVES. SOCIAL HISTORY: He is a nonsmoker and nondrinker. He is . No drug use. FAMILY HISTORY: Significant for lung and prostate cancer as well as heart disease. CURRENT MEDICATIONS: Include, 1. Vitamin B12, which he says he takes sublingual daily. 2. Nitrostat p.r.n. 3. Lisinopril 10 mg daily. 4. Potassium chloride 10 mEq daily. 5. Pantoprazole 40 mg daily. 6. Carvedilol 6.25 mg twice daily. 7. Aspirin 325 mg daily. 8. Albuterol HFA as needed. 9. Flexeril 10 mg as needed. 10. Torsemide 20 mg daily. 11. Lipitor 40 mg daily. 12. Plavix 75 mg daily. PHYSICAL EXAMINATION: GENERAL: He is alert and oriented. He appears to be in no acute distress. He is actually sitting up, eating when I came to evaluate him. He is well developed and well nourished. VITAL SIGNS: Blood pressure 188/116, heart rate 62, respiratory rate of 16, and he is afebrile. HEENT: Pupils are equal, round, and reactive. Extraocular muscles are intact. Sclerae anicteric. Throat, no erythema, no exudates. NECK: No adenopathy. No bruits. LUNGS: Clear to auscultation. There is no wheezing, no rales, no rhonchi. CARDIOVASCULAR: He has a normal S1 and S2. There is no S3 or S4. No murmurs, clicks, or rubs. ABDOMEN: Obese, soft, nontender, nondistended. Positive for bowel sounds. No rebound. No guarding. No organomegaly. EXTREMITIES: There is 1 to 2+ edema. No calf tenderness. No joint effusions. Palpable dorsalis pedis pulses. NEUROLOGIC: Grossly nonfocal. LABORATORY DATA: He had a CK done, was 51. Troponin less than 0.010. ASSESSMENT: 1. This is a pleasant 69-year-old gentleman, who has a history of coronary artery disease, who is being placed in observation after experiencing an episode of chest pain following the surgery. This was relieved with nitroglycerin patch. He will be monitored overnight. Continue to trend cardiac enzymes. We will need to get better control of his blood pressure as this could be the reason for some of his symptoms. Place him on deep venous thrombosis prophylaxis. 2. Hypertension. Again, his blood pressure is elevated. We will reconcile and restart his medications and place him on p.r.n. labetalol for now. 3. Hyperlipidemia. Continue his home medications. 4. Gastroesophageal reflux disease. This is also a possibility for his symptoms and we will place him on a proton pump inhibitor as well as Carafate p.r.n. Hopefully, if the patient remains stable, he can be discharged home tomorrow. Job ID: [id number]
[2020-08-05 04:35] VITALS: TEMP 97.2
[2020-08-05] MEDS: Nitroglycerin 2% Ointment 1 INCH/1 GM Packet TOP SCH (06:01)
[2020-08-05 06:27] LABS: #Eosinphils 0.1 thou/uL (0.0-0.7); #Lymphocytes 1.1 thou/uL (1.20-3.40); #Monocytes 0.5 thou/uL (0.11-0.59); #Neutrophils 5.2 thou/uL (1.40-6.50); %Basophils 0.7 % (0.0-1.0); %Eosinophils 0.8 % (0.0-10.0); %Lymphocytes 15.9 % (21.0-51.0); %Monocytes 6.8 % (0.0-10.0); %Neutrophils 75.8 % (42.0-75.0); Hemoglobin 14.4 g/dL (14.0-18.0); Mean Corpuscular HGB CONC 33.2 g/dL (32.0-36.0); Mean Corpuscular Hemoglobin 29.6 pg (27.0-31.0); Mean Corpuscular Volume 89.4 fL (78.0-98.0); Mean Platelet Volume 9.6 fL (7.4-10.4); Platelet Count 203 thou/uL (130-400); RBC Distribution Width 12.2 % (11.5-14.5); Red Blood Cell (RBC) Count 4.84 mill/uL (4.70-6.10); White Blood Cell (WBC) Count 6.9 thou/uL (4.8-10.8)
[2020-08-05 06:36] LABS: Anion Gap 12 mmol/L (10-20); BUN (Urea Nitrogen) 16 mg/dL (8.4-25.7); Calc. Creatinine Clearance 162 mL/min (70-130); Calcium 7.9 mg/dL (7.8-10.44); Carbon Dioxide 25 mmol/L (23-31); Cardiac Risk 5.1 (Less than 4.5); Chloride 105 mmol/L (98-107); Cholesterol 133 mg/dl (< 200 Desired); Glucose 81 mg/dL (80-115); HDL Cholesterol 26 mg/dL (>60 Neg Risk); LDL Cholesterol, Calculated 92 mg/dL; Sodium 138 mmol/L (136-145); Triglycerides 74 mg/dL (Less than 150)
[2020-08-05] MEDS ORDERED: Labetalol HCl 100 MG/20 ML VIAL SLOW IVP PRN (07:15)
[2020-08-05] MEDS ORDERED: Enoxaparin Sodium 40 MG/0.4 ML SYRINGE ONE (07:56)
[2020-08-05] MEDS ORDERED: Clopidogrel Bisulfate 75 MG TAB ONE (07:57)
[2020-08-05] MEDS ORDERED: Carvedilol 6.25 MG TAB ONE (07:59)
[2020-08-05] MEDS ORDERED: Aspirin 325 MG TAB ONE (08:00)
[2020-08-05] MEDS ORDERED: Atorvastatin Calcium 40 MG TAB ONE (08:00)
[2020-08-05] MEDS: Carvedilol 6.25 MG TAB PO SCH (08:13)
[2020-08-05] MEDS: Lisinopril 5 MG TAB PO SCH (08:16)
[2020-08-05 08:18] VITALS: BP 158/95
[2020-08-05] MEDS ORDERED: Atorvastatin Calcium 40 MG TAB PO SCH (09:00)
[2020-08-05] MEDS ORDERED: Potassium Chloride 10 MEQ TAB PO SCH (09:00)
[2020-08-05] MEDS ORDERED: Torsemide 20 MG TAB PO SCH (09:00)
[2020-08-05] MEDS: Lisinopril 10 MG TAB PO SCH (09:00)
[2020-08-05] MEDS ORDERED: Clopidogrel Bisulfate 75 MG TAB PO SCH (09:00)
[2020-08-05] MEDS ORDERED: Enoxaparin Sodium 40 MG/0.4 ML SYRINGE SC SCH (09:00)
[2020-08-05] MEDS ORDERED: Aspirin 325 mg Enteric Coated Tablet PO SCH (09:00)
--- NOTE | 2020-08-05 09:03 | PRG ---
DATE OF SERVICE: SUBJECTIVE: Mr. Ly is doing well today. No chest pain or pressure. Blood pressure is still somewhat elevated even despite the lisinopril. OBJECTIVE: VITAL SIGNS: Blood pressure 158/95; pulse 70, it is 60 on the monitor now, sinus. LUNGS: Clear. CARDIAC: Normal S1, normal S2. ABDOMEN: Soft, nontender. EXTREMITIES: There is no edema. LABORATORY DATA: Cardiac enzymes were negative. ASSESSMENT: 1. Recent biopsy of left-sided neck mass successful. 2. Postoperative angina, resolved. 3. Negative cardiac enzymes. PLAN: 1. He is going to go back on Plavix 75 mg a day. 2. Aspirin 325 mg a day. 3. Lisinopril 10 mg twice a day. 4. Torsemide 20 mg a day. 5. Potassium. 6. Atorvastatin 40 mg a day. 7. See us in the office in a couple of weeks. 8. Biopsy results pending. 9. Resume carvedilol. Job ID: [id number]
--- NOTE | 2020-08-05 11:45 | OP ---
DATE OF PROCEDURE: 08/04/2020 PREOPERATIVE DIAGNOSIS: Left parotid mass, left deep neck mass. POSTOPERATIVE DIAGNOSIS: Left parotid mass, left deep neck mass. PROCEDURE PERFORMED: Left superficial parotidectomy with facial nerve dissection. PROCEDURE IN DETAIL: After consent was obtained, the patient was identified, brought to the operating room and placed on the operating table in supine position. General endotracheal anesthesia was obtained and a facial nerve monitor was placed and documented to be functioning well. We then made a preauricular incision and carried it down to the upper neck and created a facial flap at the level of the SMAS. This was then retracted and the mass was visualized coming from the deep aspect within the parotid gland and was seen to be dark colored. We dissected down along the external canal until we saw the pointer cartilage and dissection then continued posteriorly along the anterior aspect of the sternocleidomastoid. The tail of parotid was then retracted anteriorly and the trunk of the facial nerve was identified between the posterior digastric muscle and the pointer cartilage. At a length for approximately 2 cm, we were able to dissect the pes of the facial nerve and we then turned our attention to excising the posterior aspect of the parotid tail with care not to injure the facial nerve. The specimen was sent for histologic evaluation as it was removed with care not to injure the facial nerve branches. We then reapproximated the SMAS with the anterior aspect of the sternocleidomastoid with Monocryl after all bleeding points were either cauterized or suture ligated. The skin was then closed in layers with 5-0 Monocryl to reapproximate the dermis and 6-0 Prolene to close the skin. A sterile dressing was then applied and the patient was awakened, extubated, and taken to recovery room in a stable condition prior to discharge home. Job ID: [id number]
--- NOTE | 2020-08-05 17:53 | PDOC.DS.DS ---
Provider Date of Admission: 08/04/20 14:03 Date of Discharge: 08/05/20 Admitting Provider: Dany Gray MD Consultations: Cardiology Primary Care Physician: Kalpesh Tena MD Course Hospital Course: Mr. Ly is a 69-year-old gentleman that has a history of coronary artery disease as well as diabetes mellitus. He was admitted to the hospital for an elective surgery to remove a sebaceous cyst. Following the surgery he developed an episode of chest pain as well as an elevated blood pressure. His retail marketing specialist was consulted and he was placed in observation as a precaution. His cardiac enzymes were monitored and an EKG was done which showed no changes. As needed medication for blood pressure was administered and the following day his symptoms stabilized. And he was subsequently able to be discharged home with close follow-up with Dr. Wells and with his primary care physician. Resuscitation Status: 08/04/20 19:14 Resuscitation Status Routine Resuscitation Status: FULL: Full Resuscitation Lab Results: 08/05/20 05:42 08/05/20 05:42 Abnormal Lab Results - Last 48 hrs 08/05/20 05:42: Neutrophils % 75.8 H, Lymphocytes % 15.9 L, Lymphocytes # 1.1 L Vitals: Vital Signs (12 hours) Temp Pulse Resp BP BP Pulse Ox 08/05/20 09:00 158/95 H 08/05/20 08:16 75 158/95 H 08/05/20 08:13 158/95 H 08/05/20 08:00 97.2 F L 68 20 158/95 H 97 08/05/20 06:58 75 20 163/108 H 95 08/05/20 06:08 63 162/107 H 95 Weight Admit Weight 280 lb 9.877 oz Weight 275 lb Physical Exam: The patient was seen and examined on the day of discharge. Plan Home Medications: Medication Instructions Recorded Confirmed Type Nitroglycerin [Nitrostat] 0.4 mg SL Q5MIN PRN #25 tab 06/18/18 08/02/20 Rx Aspirin [Ecotrin Low Strength] 81 mg PO DAILY tab 12/28/18 08/02/20 Rx Carvedilol [Coreg] 6.25 mg PO BID-WM #180 tab 12/28/18 08/02/20 Rx Lisinopril [Zestril] 10 mg PO BID tab 12/28/18 08/02/20 Rx Atorvastatin Calcium [Lipitor] 40 mg PO DAILY 05/24/19 08/02/20 History Cyanocobalamin (Vitamin B-12) 2,500 mcg PO DAILY 05/24/19 08/02/20 History [Vitamin B12] Cyclobenzaprine [Flexeril] 10 mg PO TID PRN 05/24/19 08/02/20 History Potassium Chloride 10 meq PO DAILY 05/24/19 08/02/20 History Torsemide [Demadex] 20 mg PO DAILY 05/24/19 08/02/20 History Clopidogrel Bisulfate [Clopidogrel] 75 mg PO DAILY 07/18/20 08/02/20 History Diphenoxylate HCl/Atropine 1 tab PO DAILY PRN 07/18/20 08/02/20 History [Lomotil] Famotidine [Pepcid] 20 mg PO BID PRN 07/18/20 07/18/20 History Allergies: [facility] besylate [[facility]] Allergy (Verified 08/02/20 13:15) Hives Activity:: Activity as Tolerated Nourishment:: Heart Healthy Diet Referrals: Kalpesh Tena MD [Primary Care Provider] - Disposition: HOME Quality CORE MEASURES:: N/A
== END 2020-08-05 10:25 | disposition home or self-care (01) ==
LOC: SDC 09:00 → ERHOLD 14:03 → SURG A 14:03 → UNDOADMOB 14:03 → PACU-TCU 17:20
PROVIDERS: ADMIT Specialist; ATTEND Internal Medicine
PROC: 0CB90ZZ Excision of Left Parotid Gland, Open Approach (ICD-10-PCS; principal; 2020-08-04)
PROC: 00BM0ZZ Excision of Facial Nerve, Open Approach (ICD-10-PCS; 2020-08-04)
DX: D18.09 Hemangioma of other sites (principal); I10 Essential (primary) hypertension; M19.90 Unspecified osteoarthritis, unspecified site; J45.909 Unspecified asthma, uncomplicated; K21.9 Gastro-esophageal reflux disease without esophagitis; I25.10 Atherosclerotic heart disease of native coronary artery without angina pectoris; E78.5 Hyperlipidemia, unspecified; F41.9 Anxiety disorder, unspecified; Z79.02 Long term (current) use of antithrombotics/antiplatelets; Z79.82 Long term (current) use of aspirin; Z79.899 Other long term (current) drug therapy; Z88.8 Allergy status to other drugs, medicaments and biological substances; Z95.5 Presence of coronary angioplasty implant and graft
CPT/HCPCS: 36415; 80048; 80061; 82550; 82553; 84484; 85025; 88307; 93005; 93010; 96372; G0378; J0171; J1100; J1650; J2270; J2405; J2550; J2704; J3010; J3490; S0020; S0028

== ENCOUNTER 2020-10-21 14:03 | Outpatient (CLI) | payer BC, MEDICARE ==
[2020-10-21 15:53] LABS: #Basophils 0.1 10x3/uL (0.0-0.2); #Eosinphils 0.2 10x3/uL (0.0-0.5); #Monocytes 0.5 10x3/uL (0.0-1.1); #Neutrophils 6.5 10x3/uL (1.5-8.4); %Basophils 0.6 % (0.0-2.0); %Eosinophils 2.7 % (0.0-6.0); %Lymphocytes 16.2 % (18.0-47.0); %Monocytes 5.7 % (0.0-10.0); %Neutrophils 74.5 % (40.0-75.0); Hemoglobin 15.9 g/dL (13.5-17.5); Mean Corpuscular HGB CONC 33.1 g/dL (32.0-36.0); Mean Corpuscular Hemoglobin 29.2 pg (27.0-33.0); Mean Corpuscular Volume 88.2 fl (81.2-95.1); Mean Platelet Volume 11.6 fl (7.4-10.4); Platelet Count 186 10x3/uL (150-450); RBC Distribution Width 13.7 % (11.5-14.5); Red Blood Cell (RBC) Count 5.44 10x6/uL (4.32-5.72); White Blood Cell (WBC) Count 8.7 10x3/uL (3.5-10.5)
[2020-10-21 16:13] LABS: ALT (SGPT) 20 U/L (8-55); AST (SGOT) 13 U/L (5-34); Albumin 3.9 g/dL (3.4-4.8); Alkaline Phosphatase 105 U/L (40-110); Anion Gap 14 mmol/L (10-20); BUN (Urea Nitrogen) 14 mg/dL (8.4-25.7); Bilirubin, Total 0.6 mg/dL (0.2-1.2); Calc. Creatinine Clearance 0 mL/min (70-130); Carbon Dioxide 23 mmol/L (23-31); Chloride 105 mmol/L (98-107); Globulin 2.7 g/dL (2.4-3.5); Glucose 90 mg/dL (80-115); Potassium 4.3 mmol/L (3.5-5.1); Protein, Total 6.6 g/dL (5.8-8.1); Sodium 138 mmol/L (136-145)
[2020-10-22 03:28] LABS: SARS-CoV-2 PCR by NAA Not Detected (NotDetected)
== END 2020-10-21 14:04 | disposition home or self-care (01) ==
LOC: LABBT 14:03
PROVIDERS: ATTEND Internal Medicine Cardiovascular Disease
DX: Z01.812 Encounter for preprocedural laboratory examination (principal); I25.10 Atherosclerotic heart disease of native coronary artery without angina pectoris; R94.39 Abnormal result of other cardiovascular function study; Z20.822 Contact with and (suspected) exposure to COVID-19
CPT/HCPCS: 80053; 85025; 87635; U0003; U0005

== ENCOUNTER 2020-10-25 05:48 | Day surgery (SDC) | payer BC, MEDICARE ==
[2020-10-24 11:15] VITALS: BMI 39.0
[2020-10-25] MEDS ORDERED: Lidocaine 1% (PF) 30 ML VIAL ONE (06:41)
[2020-10-25] MEDS ORDERED: Midazolam HCl 2 mg/2 ml Vial ONE (07:14)
[2020-10-25] MEDS ORDERED: Fentanyl 100 MCG/2 ML VIAL ONE (07:14)
[2020-10-25] MEDS ORDERED: hydrALAZINE 20 MG/ML VIAL ONE (07:25)
[2020-10-25] MEDS ORDERED: Nitroglycerin 4.9 GM Bottle ONE (08:01)
[2020-10-25] MEDS ORDERED: Iopamidol 370 76% 100 ML VIAL ONE (11:50)
== END 2020-10-25 13:00 | disposition home or self-care (01) ==
LOC: SDC 05:48
PROVIDERS: ATTEND Internal Medicine Cardiovascular Disease
PROC: 4A023N7 Measurement of Cardiac Sampling and Pressure, Left Heart, Percutaneous Approach (ICD-10-PCS; principal; 2020-10-25)
PROC: B2111ZZ Fluoroscopy of Multiple Coronary Arteries using Low Osmolar Contrast (ICD-10-PCS; principal; 2020-10-25)
DX: I25.111 Atherosclerotic heart disease of native coronary artery with angina pectoris with documented spasm (principal); I10 Essential (primary) hypertension; E78.00 Pure hypercholesterolemia, unspecified; E66.9 Obesity, unspecified; Z68.39 Body mass index [BMI] 39.0-39.9, adult; Z79.82 Long term (current) use of aspirin; Z79.02 Long term (current) use of antithrombotics/antiplatelets; Z79.899 Other long term (current) drug therapy; Z88.8 Allergy status to other drugs, medicaments and biological substances
CPT/HCPCS: 76942; 93005; 93010; 93458; 99152; 99153; J0360; J2001; J2250; J3010; Q9967

== ENCOUNTER 2020-10-27 14:15 | Inpatient (IN) | payer BC, MEDICARE ==
[2020-11-08] MEDS ORDERED: HYDROcodone/Acetaminophen 10/325 mg Tablet PO PRN ×3 (10:09→15:45)
[2020-11-08] MEDS ORDERED: Promethazine HCl 25 MG/ML VIAL IM PRN ×3 (10:09→15:45)
[2020-11-08] MEDS ORDERED: Zolpidem Tartrate 5 MG TAB PO PRN ×2 (10:09→15:45)
[2020-11-08] MEDS ORDERED: Fentanyl 100 MCG/2 ML VIAL SLOW IVP PRN ×2 (10:09)
[2020-11-08] MEDS ORDERED: diphenhydrAMINE 25 MG CAP PO PRN (10:09)
[2020-11-08] MEDS ORDERED: Ondansetron PF 4 MG/2 ML Vial IVP PRN ×2 (10:09→15:45)
[2020-11-08] MEDS ORDERED: Acetaminophen 325 MG TAB PO PRN (10:09)
[2020-11-08] MEDS ORDERED: Fentanyl 100 MCG/2 ML VIAL ONE ×3 (10:10→13:50)
[2020-11-08] MEDS ORDERED: Midazolam HCl 2 mg/2 ml Vial ONE (10:10)
[2020-11-08] MEDS ORDERED: NITROGLYCERIN TL PRN (10:11)
[2020-11-08] MEDS ORDERED: Nitroglycerin 4.9 GM Bottle PO PRN (10:38)
[2020-11-08] MEDS ORDERED: Tranexamic Acid 1,000 MG/10 ML VIAL ONE (10:39)
[2020-11-08] MEDS ORDERED: Sodium Chloride 0.9% 100 ML ONE (10:39)
[2020-11-08] MEDS ORDERED: Fentanyl 250 MCG/5 ML VIAL ONE (10:44)
[2020-11-08] MEDS ORDERED: VANCOMYCIN 2 GRAM/400 ML BAG 2 GM in Premix Bag 1 BAG IVPB SCH (11:00)
[2020-11-08] MEDS ORDERED: Ondansetron PF 4 MG/2 ML Vial ONE (11:41)
[2020-11-08] MEDS ORDERED: Lidocaine 1% PF 5 ML VIAL ONE (11:41)
[2020-11-08] MEDS ORDERED: PROPOFOL 200 MG/20 ML VIAL ONE (11:41)
[2020-11-08] MEDS ORDERED: ePHEDrine Sulfate 50 MG/10 ML VIAL ONE (11:41)
[2020-11-08] MEDS ORDERED: Dexamethasone 20 MG/5 ML VIAL ONE (11:41)
[2020-11-08] MEDS ORDERED: Ropivacaine 0.5% HCl/PF (150 MG/30 ML VIAL) ONE (11:41)
[2020-11-08] MEDS ORDERED: Ropivacaine 2% HCl/PF (20 MG/10 ML VIAL) ONE (11:41)
[2020-11-08] MEDS ORDERED: Meperidine HCl/PF 25 MG/ML VIAL SLOW IVP PRN (12:13)
[2020-11-08] MEDS ORDERED: Promethazine HCl 25 MG/ML VIAL SLOW IVP PRN (12:13)
[2020-11-08] MEDS ORDERED: Ondansetron HCl/PF 4 MG/2 ML Vial IVP PRN (12:13)
[2020-11-08] MEDS ORDERED: Labetalol HCl 100 MG/20 ML VIAL SLOW IVP PRN (12:15)
[2020-11-08] MEDS ORDERED: hydrALAZINE 20 MG/ML VIAL SLOW IVP PRN (12:19)
[2020-11-08] MEDS ORDERED: Ketorolac Tromethamine 30 MG/ML VIAL ONE (13:50)
[2020-11-08] MEDS ORDERED: Ketorolac Tromethamine 30 MG/ML VIAL IVP SCH (14:00)
[2020-11-08] MEDS ORDERED: hydrALAZINE 20 MG/ML VIAL ONE (14:05)
[2020-11-08] MEDS ORDERED: Nitroglycerin 0.4 MG TAB (25 Tab Bottle) ONE (14:10)
[2020-11-08] MEDS ORDERED: Labetalol HCl 100 MG/20 ML VIAL ONE (14:10)
[2020-11-08] MEDS ORDERED: Fentanyl 100 MCG/2 ML VIAL IV PRN (15:32)
[2020-11-08] MEDS ORDERED: Ropivacaine 0.2% 550 ML 550 ML NERVE BLCK SCH (15:45)
[2020-11-08] MEDS ORDERED: traMADol HCl 50 MG TAB PO PRN ×2 (15:45)
[2020-11-08] MEDS ORDERED: Promethazine HCl 25 MG/ML VIAL ONE (18:15)
[2020-11-08 19:23] LABS: ALT (SGPT) 12 U/L (8-55); AST (SGOT) 17 U/L (5-34); Albumin 3.6 g/dL (3.4-4.8); Alkaline Phosphatase 93 U/L (40-110); Anion Gap 13 mmol/L (10-20); BUN (Urea Nitrogen) 11 mg/dL (8.4-25.7); Bilirubin, Total 1.1 mg/dL (0.2-1.2); Calc. Creatinine Clearance 135 mL/min (70-130); Calcium 8.9 mg/dL (7.8-10.44); Carbon Dioxide 24 mmol/L (23-31); Chloride 103 mmol/L (98-107); Globulin 2.7 g/dL (2.4-3.5); Glucose 101 mg/dL (80-115); Potassium 3.9 mmol/L (3.5-5.1); Protein, Total 6.3 g/dL (5.8-8.1); Sodium 136 mmol/L (136-145)
[2020-11-08] MEDS ORDERED: Aspirin 81 mg Enteric Coated Tablet PO SCH (21:00)
[2020-11-08] MEDS: Sodium Chloride 0.9% 1,000 ML IV SCH ×2 (21:20→21:44)
[2020-11-08] MEDS: Carvedilol 6.25 MG TAB PO SCH (21:20)
[2020-11-08] MEDS: CEFAZOLIN 2 GM in Premix Bag 1 BAG IVPB SCH ×2 (21:20→21:43)
[2020-11-08] MEDS: Ketorolac Tromethamine 30 MG/ML VIAL IVP SCH ×2 (21:20→23:51)
[2020-11-08] MEDS: Senokot S 8.6-50 MG TAB PO SCH (21:36)
[2020-11-08] MEDS: Lisinopril 20 MG TAB PO SCH (21:42)
[2020-11-08] MEDS: Ferrous Gluconate 324 MG TAB PO SCH (21:42)
[2020-11-08] MEDS: Nitroglycerin 2% Ointment 1 INCH/1 GM Packet TOP SCH (21:44)
[2020-11-08 22:20] VITALS: BMI 39.6
[2020-11-09] MEDS: Nitroglycerin 2% Ointment 1 INCH/1 GM Packet TOP SCH ×3 (04:06→20:04)
[2020-11-09] MEDS: Ketorolac Tromethamine 30 MG/ML VIAL IVP SCH ×4 (05:24→23:51)
[2020-11-09 05:30] LABS: Hemoglobin 15.1 g/dL (14.0-18.0); Mean Corpuscular HGB CONC 32.3 g/dL (32.0-36.0); Mean Corpuscular Hemoglobin 29.2 pg (27.0-31.0); Mean Corpuscular Volume 90.2 fL (78.0-98.0); Mean Platelet Volume 8.7 fL (7.4-10.4); Platelet Count 197 thou/uL (130-400); RBC Distribution Width 12.9 % (11.5-14.5); Red Blood Cell (RBC) Count 5.17 mill/uL (4.70-6.10); White Blood Cell (WBC) Count 12.8 thou/uL (4.8-10.8)
[2020-11-09] MEDS: Sodium Chloride 0.9% 1,000 ML IV SCH ×2 (05:32→15:03)
[2020-11-09] MEDS: Multivitamin W/ Minerals 1 TAB PO SCH (08:24)
[2020-11-09] MEDS: Potassium Chloride 10 MEQ TAB PO SCH (08:24)
[2020-11-09] MEDS: Ferrous Gluconate 324 MG TAB PO SCH ×2 (08:24→20:03)
[2020-11-09] MEDS: Aspirin 81 mg Enteric Coated Tablet PO SCH (08:24)
[2020-11-09] MEDS: Lisinopril 20 MG TAB PO SCH ×2 (08:26→20:03)
[2020-11-09] MEDS: Carvedilol 6.25 MG TAB PO SCH ×2 (08:27→17:07)
[2020-11-09] MEDS: HYDROcodone/Acetaminophen 10/325 mg Tablet PO PRN ×3 (08:39→23:51)
[2020-11-09] MEDS: Senokot S 8.6-50 MG TAB PO SCH ×2 (08:41→20:04)
[2020-11-09] MEDS ORDERED: Non-Formulary Item 1 EACH (Potassium Chloride [Potassium Chloride] 10 MEQ Tablet.Er) PO SCH (09:00)
[2020-11-09] MEDS ORDERED: DILTIAZEM HCL 120 MG PO SCH (09:00)
[2020-11-10] MEDS: Sodium Chloride 0.9% 1,000 ML IV SCH (01:00)
[2020-11-10] MEDS: Ketorolac Tromethamine 30 MG/ML VIAL IVP SCH (05:15)
[2020-11-10] MEDS: Aspirin 81 mg Enteric Coated Tablet PO SCH (08:35)
[2020-11-10] MEDS: Ferrous Gluconate 324 MG TAB PO SCH (08:35)
[2020-11-10] MEDS: Multivitamin W/ Minerals 1 TAB PO SCH (08:35)
[2020-11-10] MEDS: Potassium Chloride 10 MEQ TAB PO SCH (08:35)
[2020-11-10] MEDS: Carvedilol 6.25 MG TAB PO SCH (08:37)
[2020-11-10] MEDS: Lisinopril 20 MG TAB PO SCH (08:37)
[2020-11-10] MEDS: HYDROcodone/Acetaminophen 10/325 mg Tablet PO PRN (08:37)
[2020-11-10 08:38] VITALS: BP 151/82
[2020-11-10] MEDS: Senokot S 8.6-50 MG TAB PO SCH (08:39)
[2020-11-10 08:46] VITALS: TEMP 98.3
== END 2020-11-10 11:15 | disposition home or self-care (01) | DRG 470 ==
LOC: SURG A 11-08 09:01
PROVIDERS: ADMIT Orthopaedic Surgery; ATTEND Orthopaedic Surgery
PROC: 0SRC0J9 Replacement of Right Knee Joint with Synthetic Substitute, Cemented, Open Approach (ICD-10-PCS; principal; 2020-11-08)
PROC: 8E0YXBZ Computer Assisted Procedure of Lower Extremity (ICD-10-PCS; 2020-11-08)
DX: M17.11 Unilateral primary osteoarthritis, right knee (principal); I20.1 Angina pectoris with documented spasm; Z20.822 Contact with and (suspected) exposure to COVID-19; M21.161 Varus deformity, not elsewhere classified, right knee; I10 Essential (primary) hypertension; F32.9 Major depressive disorder, single episode, unspecified; K21.9 Gastro-esophageal reflux disease without esophagitis; J45.909 Unspecified asthma, uncomplicated; I25.10 Atherosclerotic heart disease of native coronary artery without angina pectoris; E78.5 Hyperlipidemia, unspecified; G47.33 Obstructive sleep apnea (adult) (pediatric); E66.9 Obesity, unspecified; Z79.52 Long term (current) use of systemic steroids; Z79.899 Other long term (current) drug therapy; Z79.82 Long term (current) use of aspirin; Z90.49 Acquired absence of other specified parts of digestive tract; Z88.8 Allergy status to other drugs, medicaments and biological substances; Z68.39 Body mass index [BMI] 39.0-39.9, adult
CPT/HCPCS: 36415; 80053; 85027; 93005; 93010; C1713; C1776; J0360; J0690; J1100; J1885; J2250; J2405; J2550; J2704; J2795; J3010; J3490

== ENCOUNTER 2020-11-03 11:55 | Outpatient (CLI) | payer BC, MEDICARE ==
[2020-11-03 12:43] LABS: Bilirubin Neg (Negative); Blood, Urine Negative (Negative); Clarity Clear (Clear); Glucose, Urine (Dipstick) Normal (Negative); Ketone, Urine Negative (Negative); Leukocyte Negative (Negative); Nitrite Negative (Negative); Protein, Urine (Dipstick) Negative (Neg-Trace); pH, Urine 6.5 (5.0-9.0)
[2020-11-03 12:46] LABS: Prothrombin Time 10.9 sec (9.5-12.1)
[2020-11-03 13:11] LABS: WBC/HPF 0-3 HPF (0-3)
[2020-11-03 13:12] LABS: Bacteria/HPF 1+ HPF (None Seen); RBC/HPF 0-3 HPF (0-3)
[2020-11-03 20:47] LABS: SARS-CoV-2 PCR by NAA Not Detected (NotDetected)
== END 2020-11-03 11:56 | disposition home or self-care (01) ==
LOC: LABBT 11:55
PROVIDERS: ATTEND Orthopaedic Surgery
DX: Z01.812 Encounter for preprocedural laboratory examination (principal); Z20.822 Contact with and (suspected) exposure to COVID-19; M17.12 Unilateral primary osteoarthritis, left knee
CPT/HCPCS: 81001; 85610; 87081; 87635; U0003; U0005

== ENCOUNTER 2021-08-30 12:43 | Emergency (ER) | payer BC, MEDICARE | END 2021-08-30 14:08 | disposition left against medical advice (07) | LOC: ERS 12:43 | DX: Z53.21 Procedure and treatment not carried out due to patient leaving prior to being seen by health care provider (principal) ==

== ENCOUNTER 2023-01-03 05:50 | Day surgery (SDC) | payer OTHER ==
[2022-12-28 12:31] VITALS: BMI 36.9
[2023-01-03] MEDS ORDERED: fentaNYL 50 mcg/mL 1 mL Vial ONE ×3 (07:35→11:44)
[2023-01-03] MEDS ORDERED: Midazolam HCl 2 mg/2 ml Vial ONE (07:35)
[2023-01-03] MEDS ORDERED: Ropivacaine 0.2% HCl/PF 20 ML ONE (07:35)
[2023-01-03] MEDS ORDERED: Ropivacaine 0.5% HCl/PF (150 MG/30 ML VIAL) ONE (07:35)
[2023-01-03] MEDS ORDERED: Sodium Chloride 0.9% 100 ML ONE ×2 (07:41→09:20)
[2023-01-03] MEDS ORDERED: Tranexamic Acid 1,000 MG/10 ML VIAL ONE (07:41)
[2023-01-03] MEDS ORDERED: VANCOMYCIN 2 GRAM/500 ML BAG 2 GM in Premix Bag 1 BAG IVPB SCH (07:45)
[2023-01-03] MEDS ORDERED: Ondansetron PF 4 MG/2 ML Vial ONE ×2 (08:29→09:39)
[2023-01-03] MEDS ORDERED: fentaNYL 50 mcg/mL 1 mL Vial SLOW IVP PRN (08:38)
[2023-01-03] MEDS ORDERED: Zolpidem Tartrate 5 MG TAB PO PRN (08:45)
[2023-01-03] MEDS ORDERED: Promethazine HCl 25 MG/ML VIAL IM PRN (08:45)
[2023-01-03] MEDS ORDERED: HYDROcodone/Acetaminophen 5/325 mg Tablet PO PRN ×2 (08:45)
[2023-01-03] MEDS ORDERED: Ropivacaine 0.2% 550 ML 550 ML NERVE BLCK SCH (08:45)
[2023-01-03] MEDS ORDERED: traMADol HCl 50 MG TAB PO PRN ×2 (08:45)
[2023-01-03] MEDS ORDERED: Ondansetron PF 4 MG/2 ML Vial IVP PRN (08:45)
[2023-01-03] MEDS ORDERED: Lisinopril 10 MG TAB PO SCH ×2 (09:00→13:00)
[2023-01-03] MEDS ORDERED: CEFAZOLIN 2 GM VIAL ONE (09:20)
[2023-01-03] MEDS ORDERED: Lidocaine 1% PF 5 ML VIAL ONE (09:39)
[2023-01-03] MEDS ORDERED: PROPOFOL 200 MG/20 ML VIAL ONE (09:39)
[2023-01-03] MEDS ORDERED: Rocuronium Bromide 10 MG/ML (10ML VIAL) ONE (09:39)
[2023-01-03] MEDS ORDERED: Dexamethasone 20 MG/5 ML VIAL ONE (09:39)
[2023-01-03] MEDS ORDERED: SUGAMMADEX SODIUM 200 MG/2 ML VIAL ONE (11:07)
[2023-01-03] MEDS ORDERED: Ketorolac Tromethamine 30 MG/ML VIAL IVP SCH (12:00)
[2023-01-03] MEDS ORDERED: hydrALAZINE 20 MG/ML VIAL ONE (12:42)
[2023-01-03] MEDS ORDERED: hydrALAZINE 20 MG/ML VIAL SLOW IVP SCH (13:00)
[2023-01-03] MEDS ORDERED: Lisinopril 10 MG TAB ONE (13:15)
[2023-01-03] MEDS ORDERED: HYDROcodone/Acetaminophen 5/325 mg Tablet ONE (14:00)
== END 2023-01-03 14:48 | disposition home or self-care (01) ==
LOC: SDC 05:50
PROVIDERS: ATTEND Orthopaedic Surgery
PROC: 0RRK0JZ Replacement of Left Shoulder Joint with Synthetic Substitute, Open Approach (ICD-10-PCS; principal; 2023-01-03)
DX: M12.812 Other specific arthropathies, not elsewhere classified, left shoulder (principal); I10 Essential (primary) hypertension; J45.909 Unspecified asthma, uncomplicated; F32.A Depression, unspecified; K21.9 Gastro-esophageal reflux disease without esophagitis; Z90.49 Acquired absence of other specified parts of digestive tract; Z79.82 Long term (current) use of aspirin; Z79.899 Other long term (current) drug therapy
CPT/HCPCS: 93005; 93010; A4306; C1713; C1776; J0360; J1100; J2250; J2405; J2704; J2795; J3010; J3370; J3490